=== PATIENT | female | born 2000 ===

== ENCOUNTER 2020-01-12 09:47 | Emergency (ER) | payer OTHER, SELFPAY ==
[2020-01-12 09:59] VITALS: BP 118/74; BP 150/100; PULSE 100; PULSE 90; RESP 18; TEMP 36.8; O2SAT 98; O2SAT 99; BMI 31.7
--- NOTE | 2020-01-12 10:40 | XR_ITS ---
EXAMINATION: XR FOOT, RIGHT CLINICAL INFORMATION: Cellulitis. Pain. COMPARISON: None TECHNIQUE: AP, lateral, and oblique views of the right foot. FINDINGS: The bones and soft tissues are normal. No fracture. Alignment is anatomic. Joint spaces are maintained. No evidence for osteomyelitis. No radiopaque foreign body. XR/XR foot RT min 3V IMPRESSION: Normal right foot.
--- NOTE | 2020-01-12 10:40 | CT_ITS ---
EXAM: Noncontrast CT scan of the head and cervical spine. INDICATION: Fall with head injury and pain. COMPARISON: Head CT 07/26/2019 TECHNIQUE: Axial slices were obtained from skull base to vertex and displayed. This was followed by helical, multislice, multidetector axial images from the occiput to the upper thorax. Coronal and sagittal reformats of the cervical spine in addition to coronal reformats of the head were obtained at the technologist workstation. DLP: 1155 mGy-cm FINDINGS: HEAD: There is no evidence of acute intracranial hemorrhage or territorial infarction. No abnormal mass effect or midline shift is appreciated. Myles-white differentiation is well preserved. No extra-axial fluid collections. The ventricular system and cortical sulci are normal. The osseous structures and soft tissues are normal. The visualized paranasal sinuses and mastoid air cells are well aerated. SPINE: There is straightening of the normal cervical lordosis. Alignment is otherwise unremarkable. Normal C1/C2 articulation. Vertebral body heights and disc spaces are well-maintained. No significant degenerative changes of the cervical spine. No prevertebral soft tissue swelling. Visualized lung apices are well aerated. CT/CT cervical spine wo con IMPRESSION: 1. No acute intracranial pathology. 2. No fractures or dislocations of the cervical spine. This CT examination was performed using dose optimization techniques as appropriate, variously including the following: *Automated exposure control *Adjustment of mA and/or kV according to patient size (this includes techniques or standardized protocols for targeted exams where dose is matched to indication/reason for exam; i.e. extremities or head) *Use of iterative reconstruction technique
--- NOTE | 2020-01-12 10:41 | ED_ITS ---
HPI - General Adult General Chief complaint: General Medical Stated complaint: FALL HIT HEAD Time Seen by Provider: 01/12/20 10:30 Source: patient Mode of arrival: ambulatory Limitations: no limitations History of Present Illness HPI narrative: 19yoF presenting to the ED c c/o headache after she sustained a fall at home mary she slipped and fell while running to prevent her son from touching a briceño on the ot stove c head injury no loc/blood thinner's. Denies any other injuries pertaining to this fall. Reports she was seen here in October for right great toe ingrown toenail was placed on antibiotics after e I&D day and reports that the toe continues to be erythematous and painful. Reports she has not followed up. Denies any fevers or any other symptom complaints or concerns. Related Data Previous Rx's Medication Instructions Recorded acetaminophen [Tylenol Extra 1,000 mg PO QID PRN #10 tab 01/12/20 Strength] cephalexin [Keflex] 500 mg PO Q6H 10 Days #40 cap 01/12/20 doxycycline monohydrate 100 mg PO BID 10 Days #20 cap 01/12/20 Allergies Allergy/AdvReac Type Severity Reaction Status Date / Time No Known Allergies Allergy Unverified 10/24/19 17:06 [No Known Allergies*] Review of Systems Review of Systems: Constitutional : No changes in activity, No lethargy, No recent prior head injury, No agitation, No increased fussiness ENT/Mouth : No Ear Pain, No Nasal discharge/drainage Eyes: No Eye Pain, No Swelling, No Redness, No Foreign Body, No Vision Changes Cardiovascular : No Chest Pain, No SOB Respiratory : No Cough Gastrointestinal : No Nausea, No Vomiting, No abdominal Pain Genitourinary : No Dysuria, No Urinary Frequency, No Urinary Incontinence, No Urgency, No Flank Pain Musculoskeletal : + joint pain/swelling/redness, No neck stiffness, No back pain/injury Skin : No lacerations Neuro : No unsteady gait, No Paresthesias, No Loss of Consciousness, No altered mental status, +head injury c Headache Yes all other systems are reviewed and are negative [facility] Past Medical History Attestation statement: The following information was validated with the patient. Medical History No known health problems Social History Social History Advance Directives: No Advance Directives Information Provided: No Physical Exam Vital Signs: Vital Signs: Last Vital Signs Temp 98.3 F 01/12/20 09:59 Pulse 90 01/12/20 09:59 Resp 18 01/12/20 09:59 BP 118/74 01/12/20 09:59 Pulse Ox 99 01/12/20 09:59 Body Mass Index 31.7 Vital signs have been reviewed as normal and appeared to be correct. Blood pressure normal. Heart rate normal. Respiration rate normal. Temperature normal. Oxygen saturation normal. Appearance: Alert. Oriented X3. No acute distress. Head: Normal external exam. Normocephalic. to left posterior occiptal aspect th ere is ecchymosis and sts noted. No lacerations/abrasions noted. Able to rotate head bilaterally. Eyes: PERRLA. EOMI. No nystagmus noted. Conjunctiva and sclera normal. Eyelids normal. Corneal reflex normal. ENT: EAC normal. TM's Normal. Hearing normal. Pharynx normal. Uvula midline. tongue midline. Moist mucous membranes. No trismus noted. No drooling noted. No muffled voice noted. Neck: Normal inspection. Neck supple. FROM. No adenopathy. No meningeal signs. CVS: Normal heart rate and rhythm. Heart sound normal. No murmurs noted. Pulses normal throughout. Respiratory: No respiratory distress. Painless inspiration. Breath sounds normal. No wheezes/rales/rhonchi noted. Chest nontender. No accessory muscle usage noted or decreased air movement noted. Back: Full range of motion noted. Skin: Skin warm and dry. Normal skin color. Normal skin turgor. No rashes/lesions/lacerations noted. Extremities: right great toe c moderate erythema and bloody scabbed noted when scabbed cleaned and removed only bloody drainage no Purulent drainage noted. No streaking / induration /fluctuance or foreign bodies noted. all other Extremities exhibit normal range of motion and Extremities nontender. Neuro: Oriented X 3. No motor deficit. No sensory deficit. Reflexes normal. Moving all extremities. No focal motor deficits. Cranial nerves II-XI intact bilaterally. Facial strength normal. Normal cognition. Speech normal. Gait normal. Strength 5/5 throughout. Muscle tone normal throughout. Able to shrug shoulders bilaterally and keep up against resistance. Course Course Course Narrative: 19-year-old female presenting to the ED with complaints of headache after she sustained a head injury due to a mechanical fall at home no loss of conscious is not on any blood thinners. Second complaint of right ingrown toenail which was taking care of here in October although with pe rsistent pain and swelling along with redness. Reports she has not followed up. - On exam patient has mild soft tissue swelling to the occipital posterior scalp with ecchymosis noted. No abrasions/lacerations noted. Patient is neuro intact no neuro deficits noted. Patient has a normal steady gait. Will obtain a CT scan of brain and cervical spine and x-ray of her right foot and then DC home with symptomatic treatment and antibiotics and referral to chassis driver. Patient understands agrees the plan. Medical Decision Making Medical Records Medical records reviewed: Yes I reviewed the patient's medical records. Imaging Data CT scan of brain and cervical spine: Attestation: I personally reviewed and interpreted this imaging study as follows: Radiologist's impression: IMPRESSION: 1. No acute intracranial pathology. 2. No fractures or dislocations of the cervical spine. right foot: Attestation: I personally reviewed and interpreted this imaging study as follows: Radiologist's impression: IMPRESSION: Normal right foot. Discharge Plan Discharge Clinical Impression: Cellulitis of great toe, right Head injury Qualifiers: Encounter type: initial encounter Qualified Code(s): S09.90XA - Unspecified injury of head, initial encounter Concussion Qualifiers: Encounter type: initial encounter Loss of consciousness presence/duration: without LOC Qualified Code(s): S06.0X0A - Concussion without loss of consciousness, initial encounter Scalp bruising Qualifiers: Encounter type: initial encounter Qualified Code(s): S00.03XA - Contusion of scalp, initial encounter Fall Qualifiers: Encounter type: initial encounter Qualified Code(s): W19.XXXA - Unspecified fall, initial encounter Patient Disposition: Home, Self-Care Instructions: Cellulitis (ED), Concussion (ED) Prescriptions: New doxycycline monohydrate 100 mg capsule 100 mg PO BID 10 Days Qty: 20 RF: 0 cephalexin [Keflex] 500 mg capsule 500 mg PO Q6H 10 Days Qty: 40 RF: 0 acetaminophen [Tylenol Extra Strength] 500 mg tablet 1,000 mg PO QID PRN (Reason: pain) Qty: 10 RF: 0 Referrals: Sebastian Servin [Physician] - 2 days Stand Alone Forms: Work/School Release Print Language: Bruneian
== END 2020-01-12 13:03 | disposition home or self-care (01) ==
PROVIDERS: Emergency Provider Internal Medicine
DX: S06.0X0A Concussion without loss of consciousness, initial encounter (principal); S00.03XA Contusion of scalp, initial encounter; L03.031 Cellulitis of right toe; M54.2 Cervicalgia; M79.671 Pain in right foot; W01.0XXA Fall on same level from slipping, tripping and stumbling without subsequent striking against object, initial encounter; Y93.02 Activity, running; Y92.000 Kitchen of unspecified non-institutional (private) residence as the place of occurrence of the external cause; Z79.899 Other long term (current) drug therapy
CPT/HCPCS: 70450; 72125; 73630; 99284

== ENCOUNTER 2021-06-30 12:48 | Emergency (ER) | payer OTHER, SELFPAY ==
[2021-06-30 13:29] VITALS: BP 126/81; PULSE 82; RESP 18; TEMP 36.6; O2SAT 99; BMI 34.9
--- NOTE | 2021-06-30 16:06 | ED.GENADULT ---
HPI - General Adult General Chief complaint: Ear Problems Stated complaint: ear pain Time Seen by Provider: 06/30/21 15:40 Source: patient Mode of arrival: ambulatory Limitations: no limitations History of Present Illness HPI narrative: 20-year-old female presents to the ED for right ear pain for the past 3 days. Patient denies any ear discharge. Patient states pain with decreased hearing. Patient denies any recent swimming. Related Data Previous Rx's Medication Instructions Recorded acetaminophen 500 mg tablet 1,000 mg PO QID PRN #10 tab 01/12/20 (Tylenol Extra Strength) cephalexin 500 mg capsule (Keflex) 500 mg PO Q6H 10 Days #40 cap 01/12/20 doxycycline monohydrate 100 mg 100 mg PO BID 10 Days #20 cap 01/12/20 capsule naproxen 500 mg tablet 500 mg PO BID PRN 10 Days #20 tab 06/30/21 [id number] 3.3 4 drp OTIC (EAR) RIGHT TID 10 Days 06/30/21 mg-3 mg-10 mg-0.5 mg/mL ear #100 ml drops,susp (Cortisporin-TC) Allergies Allergy/AdvReac Type Severity Reaction Status Date / Time No Known Allergies Allergy Verified 06/30/21 13:29 [No Known Allergies*] Review of Systems Review of Systems: Right ear pain Yes all other systems are reviewed and are negative [facility] Past Medical History Medical History No known health problems Social History Social History Advance Directives: No Advance Directives Information Provided: No Physical Exam ED Vital Signs: Vital Signs - 24 hr 06/30/21 13:29 Temperature 97.8 F Pulse Rate 82 Respiratory Rate 18 Blood Pressure 126/81 Pulse Oximetry 99 BMI result Body Mass Index 34.9 Const General: cooperative, healthy appearing, comfortable, no acute distress, well developed, alert, awake and Physically active Orientation/consciousness: oriented to time and patient oriented x3 HENMT Head: Yes normal to inspection, Yes No palpable skull fracture present, Yes normocephalic, Yes atraumatic and No abrasion Ears: hearing grossly normal bilaterally, external ears normal, TM's normal bilaterally, TM normal on the right, TM normal on the left, mastoids normal, no periauricular adenopathy and Abnormal EAC present (Right ear) erythema and edema Eyes General: appearance normal, both eyes and all related structures Neck Neck: Yes normal visual inspection, Yes full ROM, Yes no lymphadenopathy, Yes no meningeal signs, Yes trachea midline, Yes supple, No anterior neck swelling and No tender Chest Chest palpation & inspection: normal inspection of the chest and normal palpation of entire chest wall Resp Effort & Inspection: normal respiratory effort and able to speak in complete sentences Auscultation: clear to auscultation bilaterally Cardio Jugular venous distension: no JVD Heart sounds: S1 normal heart sound present and S2 normal heart sound present GI Inspection: Yes normal to inspection and No abdominal wall ecchymosis Palpation (GI): Soft to palpation, not firm, nontender and no guarding General: No CVA tenderness and Yes no CVA tenderness Back/Spine/Pelvis Back: no CVA tenderness, No CVA tenderness and No back tenderness Skin General skin exam: no rashes or lesions noted and elasticity normal Neuro General: oriented to time, patient oriented x3, gait normal, no meningeal signs and CN's II-XI intact bilaterally Cranial nerves: Yes CN's II-XII intact bilaterally Extrem General: Yes normal to inspection and Yes full ROM Psych Appearance: grossly normal, well kempt and not disheveled Course Course Course Narrative: Right ear infection Reevaluation(s) Reevaluation #1: Physical exam indicate otitis externa. Patient will be discharged with ear drops antibiotic Time: 16:09 Medical Decision Making [facility] Narrative Medical decision making narrative: Otitis externa Discharge Plan Discharge Clinical Impression: Otitis externa Patient Disposition: Home, Self-Care Instructions: Otitis Externa (DC) Additional Instructions: History physical exam indicate infection. He will need ear drops antibiotic. Please follow-up with primary care provider and ENT specialist for days no improvement. Return to the ED immediately for worsening ear pain, blood/drainage from the ear, headache, dizziness, swelling of redness in front or behind ear or any other concerning symptoms. Prescriptions: New Cortisporin-TC 3.3-3-10-0.5 mg/mL drops,suspension 4 drp otic (ear) right TID 10 Days Qty: 100 0RF naproxen 500 mg tablet 500 mg PO BID PRN (Reason: pain) 10 Days Qty: 20 0RF No Action doxycycline monohydrate 100 mg capsule 100 mg PO BID 10 Days Qty: 20 0RF cephalexin [Keflex] 500 mg capsule 500 mg PO Q6H 10 Days Qty: 40 0RF acetaminophen [Tylenol Extra Strength] 500 mg tablet 1,000 mg PO QID PRN (Reason: pain) Qty: 10 0RF Referrals: Bryan Mendez [Physician] - (Right otitis externa) Stand Alone Forms: Work/School Release Interventions: ED Discharge Assessment Last Done: 06/30/21 16:41 Discharge Date/Time: 06/30/21 16:42 Print Language: German
== END 2021-06-30 16:42 | disposition home or self-care (01) ==
PROVIDERS: Emergency Provider Student in an Organized Health Care Education/Training Program
DX: H60.91 Unspecified otitis externa, right ear (principal)
CPT/HCPCS: 99283

== ENCOUNTER 2022-10-10 10:08 | Emergency (ER) | payer OTHER, SELFPAY ==
--- NOTE | 2022-10-10 | ECG_ITS ---
Test Reason : tachycardia Blood Pressure : / mmHG Vent. Rate : 121 BPM Atrial Rate : 121 BPM P-R Int : 126 ms QRS Dur : 086 ms QT Int : 308 ms P-R-T Axes : 030 007 042 degrees QTc Int : 437 ms Sinus tachycardia Possible Left atrial enlargement Brugada pattern, type 1 Abnormal ECG When compared with ECG of 11-MAR-2019 22:47, Vent. rate has increased BY 53 BPM T wave amplitude has decreased in Anterolateral leads Referred By: Generic ED Physician Electronically Signed By:BETO MAS
--- NOTE | ~2022-10-10 | CT_ITS ---
EXAMINATION: CT SOFT TISSUE NECK WITH CONTRAST CLINICAL INFORMATION: Sore throat. Deviated uvula. Rule out peritonsillar abscess. COMPARISON: None available. TECHNIQUE: Following the intravenous administration of 60 mL of Omnipaque 350 intravenous contrast, helical imaging was performed in the axial plane with generation of coronal and sagittal reformatted images. This CT examination was performed using dose optimization techniques as appropriate, variously including the following: *Automated exposure control *Adjustment of mA and/or kV according to patient size (this includes techniques or standardized protocols for targeted exams where dose is matched to indication/reason for exam; i.e. extremities or head) *Use of iterative reconstruction technique DLP: 611 mGy-cm FINDINGS: There is severe soft tissue swelling of the oral and nasopharynx. No definite abscess is seen. The epiglottis is normal. The larynx is normal. There is diffuse shotty cervical lymphadenopathy. Visualized intracranial structures are normal. The orbits are normal. Visualized paranasal sinuses, mastoid air cells and middle ears are clear. The salivary glands are normal. The thyroid gland is normal. Vascular structures are normal. The visualized superior mediastinum is normal. Visualized lung apices are clear. CT/CT soft tissue neck w IV con IMPRESSION: Diffuse soft tissue swelling of the oropharynx and nasopharynx. No abscess seen. Shotty cervical lymphadenopathy.
[2022-10-10 10:10] VITALS: BP 132/71; PULSE 130; RESP 20; TEMP 39.4; O2SAT 98; BMI 34.7
[2022-10-10 10:36] LABS: MANUAL DIFF FLAG NO
[2022-10-10 10:37] LABS: Basophils Percent Auto 0.3 % (0-2); Eosinophils Percent Auto 0.1 % (0-4); Hematocrit 40.1 % (37.0-47.0); Hemoglobin 13.2 g/dl (12.0-16.0); Imm Gran Abs Auto 0.04 X10*3/uL (0.00-0.03); Imm Gran Pct Auto 0.3 % (0.0-0.4); Lymphocytes Absolute Auto 1.4 X10*3/uL (1.2-4.9); Lymphocytes Percent Auto 12.5 % (20-40); Mean Corpuscular HGB Conc 32.9 g/dl (31.0-35.0); Mean Corpuscular Hemoglobin 27.6 pg (27.0-33.0); Mean Corpuscular Volume 83.9 fL (80.0-98.0); Mean Platelet Volume 9.1 fL (9.4-12.3); Monocytes Absolute Auto 1.2 X10*3/uL (0.1-1.2); Monocytes Percent Auto 10.5 % (2-11); Neutrophils Absolute Auto 8.7 x10*3/uL (2.0-8.3); Neutrophils Percent Auto 76.3 % (45-73); Platelet Count 234 X10*3/uL (160-400); Red Blood Count 4.78 X10*6/uL (4.20-5.50); Red Cell Distribution Width 13.4 % (11.0-16.0); White Blood Count 11.4 X10*3/uL (4.8-10.8)
[2022-10-10] MEDS: Acetaminophen 325 MG TABLET 975 MG PO (10:47)
[2022-10-10 11:09] LABS: Alanine Aminotransferase 26 U/L (0-31); Albumin Level 4.4 g/dL (3.5-5.0); Alkaline Phosphatase 73 U/L (39-117); Anion Gap 13 (12-20); Aspartate Amino Transferase 23 U/L (5-31); Bilirubin Total 0.7 mg/dL (0.0-1.0); Blood Urea Nitrogen 7 mg/dL (9-16); Calcium 9.2 mg/dL (8.4-10.2); Carbon Dioxide 23 mmol/L (22-29); Chloride 103 mmol/L (96-108); Creatinine Clr Calc Pharmacy 115.5; Estimated Glomerular Filt Rate > 60; Glucose Random 103 mg/dL (60-115); Potassium 3.9 mmol/L (3.3-5.1); Sodium 135 mmol/L (135-145); Total Protein 8.5 g/dL (6.5-8.0)
[2022-10-10 11:21] LABS: Influenza A PCR NEGATIVE (Negative); Influenza B PCR NEGATIVE (Negative); Resp Syncy Virus RNA Qual PCR NEGATIVE (Negative); SARS COV2 PCR INHOUSE NEGATIVE (Negative)
[2022-10-10 11:22] LABS: IDNOW Serial# 08D9AD1C; Strep A Nucleic Acid Negative (Negative)
[2022-10-10 11:40] LABS: Monotest Negative (Negative)
--- NOTE | 2022-10-10 11:44 | ED_ITS ---
HPI - URI/Sore Throat General Chief Complaint: Upper Respiratory Symptoms Stated Complaint: sore throat Time Seen by Provider: 10/10/22 10:43 Source: patient Mode of arrival: ambulatory Limitations: no limitations History of Present Illness HPI Narrative: 21 yo female with no significant past medical history presents to the ED today with congestion, sore throat, anorexia, headache ( diffuse, no vision changes, trauma or dizziness), and fever x3 days. Reports one episode of nonbloody vomiting yesterday. Admits difficulty swallowing her saliva due to sore thorat. States both of her children are sick at home. Vaccinations UTD. Denies ear pain/ discharge, cough, shortness of breath, chest pain, abdominal pain, neck pain. Related Data Previous Rx's Medication Instructions Recorded acetaminophen 500 mg tablet 1,000 mg PO QID PRN pain #10 tabs 01/12/20 (Tylenol Extra Strength) cephalexin 500 mg capsule (Keflex) 500 mg PO Q6H 10 days #40 caps 01/12/20 doxycycline monohydrate 100 mg 100 mg PO BID 10 days #20 caps 01/12/20 capsule naproxen 500 mg tablet 500 mg PO BID PRN pain 10 days #20 06/30/21 tabs [id number] 3.3 4 drp otic (ear) right TID 10 days 06/30/21 mg-3 mg-10 mg-0.5 mg/mL ear #100 mL drops,susp (Cortisporin-TC) Magic Mouthwash 5 ml PO TID #240 mL 10/10/22 Diphen/Lido/Antacid 1:1:1 240 mL suspension amoxicillin 875 mg-potassium 1 tab PO BID 10 days #20 tabs 10/10/22 clavulanate 125 mg tablet prednisone 20 mg tablet 40 mg PO DAILY 5 days #10 tabs 10/10/22 Allergies Allergy/AdvReac Type Severity Reaction Status Date / Time No Known Allergies Allergy Verified 06/30/21 13:29 [No Known Allergies*] Review of Systems Review of Systems: Constitutional : No Weight loss, + Fever, No Chills, + Fatigue, + Malaise ENT/Mouth : + sore throat, No Rhinorrhea Eyes: No Eye Pain, No Swelling, No Redness Cardiovascular : No Chest Pain, No SOB, No Dyspnea on Exertion, No Orthopnea, No Edema, No Palpitations Respiratory : No Cough, No Sputum, No Wheezing Gastrointestinal : No Nausea, + Vomiting, No Diarrhea, No Constipation, No abdominal Pain, No Hematochezia, No Melena Genitourinary : No Dysuria, No Urinary Frequency, No Hematuria, Musculoskeletal : No joint pain, No Myalgias, No Joint Swelling Skin : No Skin Lesions, No rash Neuro : No Weakness, No Numbness, No Dizziness, + Headache All other systems reviewed and are negative Yes all other systems are reviewed and are negative [facility] Past Medical History Attestation statement: The following information was validated with the patient. Source: old records reviewed and nursing notes reviewed Medical History No known health problems Social History Social History Advance Directives: No Advance Directives Information Provided: No Physical Exam Vital Signs: Vital Signs: Last Vital Signs Temp 102.9 F H 10/10/22 10:10 Pulse 130 H 10/10/22 10:10 Resp 20 10/10/22 10:10 BP 132/71 10/10/22 10:10 Pulse Ox 98 10/10/22 10:10 O2 Del Method Room Air 10/10/22 10:10 BMI result Body Mass Index 34.7 Appearance: Alert.? Oriented X3.? No acute distress.? Head: Normocephalic, atraumatic, no step-offs or deformities Eyes: Pupils equal, round and reactive to light.? ENT: Erythematous pharynx with light exudates noted to the posterior pharynx on L. Enlarged, erythematous tonsils bilaterally touching. Uvula deviated to the left. Speaking in full sentences. Controlling secretions. Neck: Normal inspection.? Neck supple.? CVS: Normal heart rate and rhythm.? Pulses normal.? Respiratory: No respiratory distress.? Breath sounds normal.? Abdomen: Soft and nontender.? Skin: Skin warm and dry.? Normal skin color.? Normal skin turgor.? Extremities: No lower extremity edema.? No calf ttp. 5/5 strength to bilateral upper and lower extremities Back: No midline tenderness, no C-spine tenderness, full range of motion, no CVA tenderness bilaterally Neuro: Oriented X 3.? No motor deficit.? No sensory deficit. CN 2-12 intact Course Reevaluation(s) Reevaluation #1: CBC with mild leukocytosis to 11.4, no left shift, otherwise WNL. CMP without any acute electrolyte abnormalities requiring intervention. Serology negative for strep & COVID. Patient with elevated white count, fever of 102.9F, and tachycardia > likely secondary to viral syndrome i do not suspect sepsis. CT soft tissue neck pending. Patient currently complaining of headache > Toradol ordered for pain control. Exam is nonfocal, low suspicion for intracranial pathology, ICH, stroke, posterior stroke at this time. Imaging of the head not necessary at this time. NIHSS 0 ( no signs of meningitis/encephalitis) Time: 12:00 Reevaluation #2: CT soft tissue neck with diffuse soft tissue swelling of the oropharynx and nasopharynx, no abscess seen. Short cervical lymphadenopathy. Patient feeling much better after medication. Will discharge home with antibiotics, prednisone, magic mouthwash. Will have her follow up with ears, Nose, Throat. Educated pat ient on diagnosis and treatment plan, answered all question, patient verbalizes understanding. At this time patient will be discharged home, advised to return with new or worsening symptoms. Educated on worrisome signs and symptoms and when to return. At this time I feel comfortable discharge home. Time: 14:31 Medications Administered Discontinued Medications Generic Name Dose Route Start Last Admin Trade Name Freq PRN Reason Stop Dose Admin Acetaminophen 975 mg 10/10/22 10:43 10/10/22 10:47 Acetaminophen 325 Mg Tablet PO 10/10/22 10:44 975 mg ONCE ONE Administration Dexamethasone Sodium Phosphate 10 mg 10/10/22 12:21 10/10/22 12:39 Dexamethasone Sod Phosphate 10 Mg/Ml Vial IVPUSH 10/10/22 12:22 10 mg ONCE ONE Administration Iohexol 60 ml 10/10/22 12:51 10/10/22 12:51 Iohexol 350 Mg/Ml 75 Ml Infus..Btl IV 10/10/22 12:52 60 ml ONCE ONE Administration Ketorolac Tromethamine 30 mg 10/10/22 11:50 10/10/22 12:16 Ketorolac Tromethamine 15 Mg/Ml Vial IM 10/10/22 11:51 30 mg ONCE ONE Administration Medical Decision Making Medical Decision Making [facility] Narrative: 1155 21 yo female presenting with sore throat, congestion, HURT[place]O, and fever x3 days PE- Erythematous pharynx with light exudates noted to the posterior pharynx on L. Enlarged, erythematous tonsils bilaterally touching. Uvula deviated to the left. Speaking in full sentences. Controlling secretions. Lungs CTA bilaterally. Clinical suspicion for viral syndrome vs strep throat vs mono. Concern for [employer] vs retropharyngeal abscess > will obtain CT soft tissue neck to rule out. Low suspicion for epiglottitis or compromised airway. No signs of respiratory disress at this time. H[place]O likely viral unlikely encephalitis, or meningitis. No signs of ICH, stroke or posterior stroke. Plan: serology, basic labs, CT neck Differential Diagnosis Differential Diagnoses: The differential diagnosis associated with the presentation includes Clinical suspicion for viral syndrome vs strep throat vs mono. Concern for [employer] vs retropharyngeal abscess > will obtain CT soft tissue neck to rule out. Low suspicion for epiglottitis or compromised airway. No signs of respiratory disress at this time. [place] likely viral unlikely encephalitis, or meningitis. No signs of ICH, stroke or posterior stroke. Admission/Observation Consideration of admission/observation: Escalation of care including admission/observation considered possible Lab Data [facility] Lab Attestation statement: I reviewed the patient's lab results. As above 10/10/22 10:26 10/10/22 10:26 Labs: Lab Results 10/10/22 10/10/22 10/10/22 Range/Units 10:26 10:26 10:26 WBC 11.4 H (4.8-10.8) X10*3/uL RBC 4.78 (4.20-5.50) X10*6/uL Hgb 13.2 (12.0-16.0) g/dl Hct 40.1 (37.0-47.0) % MCV 83.9 (80.0-98.0) fL MCH 27.6 (27.0-33.0) pg MCHC 32.9 (31.0-35.0) g/dl RDW 13.4 (11.0-16.0) % Plt Count 234 (160-400) X10*3/uL MPV 9.1 L (9.4-12.3) fL Immature Gran % (Auto) 0.3 (0.0-0.4) % Neut % (Auto) 76.3 H (45-73) % Lymph % (Auto) 12.5 L (20-40) % Barber % (Auto) 10.5 (2-11) % Eos % (Auto) 0.1 (0-4) % Baso % (Auto) 0.3 (0-2) % Lymph # (Auto) 1.4 (1.2-4.9) X10*3/uL Barber # (Auto) 1.2 (0.1-1.2) X10*3/uL Eos # (Auto) 0.0 (0.0-0.4) X10*3/uL Baso # (Auto) 0.0 (0.0-0.2) X10*3/uL Abs Immat Gran (auto) 0.04 H (0.00-0.03) X10*3/uL Absolute Neuts (auto) 8.7 H (2.0-8.3) x10*3/uL Absolute Nucleated RBC 0.000 (0.0-0.012) X10*3/uL Nucleated RBC % (auto) 0.0 (0.0-0.2) /100WBC Sodium 135 (135-145) mmol/L Potassium 3.9 (3.3-5.1) mmol/L Chloride 103 (96-108) mmol/L Carbon Dioxide 23 (22-29) mmol/L Anion Gap 13 (12-20) BUN 7 L (9-16) mg/dL Creatinine 0.83 (0.5-1.4) mg/dL Estim Creat Clear Calc 115.5 Estimated GFR > 60 Random Glucose 103 (60-115) mg/dL Lactic Acid (0.5-2.0) mmol/L Calcium 9.2 (8.4-10.2) mg/dL Total Bilirubin 0.7 (0.0-1.0) mg/dL AST 23 (5-31) U/L ALT 26 (0-31) U/L Alkaline Phosphatase 73 (39-117) U/L Total Protein 8.5 H (6.5-8.0) g/dL Albumin 4.4 (3.5-5.0) g/dL Monoscreen (Negative) Influenza Type A (PCR) NEGATIVE (Negative) Influenza Type B (PCR) NEGATIVE (Negative) RSV RNA Qual (PCR) NEGATIVE (Negative) SARS-CoV-2 RNA (RT-PCR) NEGATIVE (Negative) S. pyogenes GrpA REHAN (Negative) 10/10/22 10/10/22 10/10/22 Range/Units 11:08 11:08 12:38 WBC (4.8-10.8) X10*3/uL RBC (4.20-5.50) X10*6/uL Hgb (12.0-16.0) g/dl Hct (37.0-47.0) % MCV (80.0-98.0) fL MCH (27.0-33.0) pg MCHC (31.0-35.0) g/dl RDW (11.0-16.0) % Plt Count (160-400) X10*3/uL MPV (9.4-12.3) fL Immature Gran % (Auto) (0.0-0.4) % Neut % (Auto) (45-73) % Lymph % (Auto) (20-40) % Barber % (Auto) (2-11) % Eos % (Auto) (0-4) % Baso % (Auto) (0-2) % Lymph # (Auto) (1.2-4.9) X10*3/uL Barber # (Auto) (0.1-1.2) X10*3/uL Eos # (Auto) (0.0-0.4) X10*3/uL Baso # (Auto) (0.0-0.2) X10*3/uL Abs Immat Gran (auto) (0.00-0.03) X10*3/uL Absolute Neuts (auto) (2.0-8.3) x10*3/uL Absolute Nucleated RBC (0.0-0.012) X10*3/uL Nucleated RBC % (auto) (0.0-0.2) /100WBC Sodium (135-145) mmol/L Potassium (3.3-5.1) mmol/L Chloride (96-108) mmol/L Carbon Dioxide (22-29) mmol/L Anion Gap (12-20) BUN (9-16) mg/dL Creatinine (0.5-1.4) mg/dL Estim Creat Clear Calc Estimated GFR Random Glucose (60-115) mg/dL Lactic Acid 0.5 (0.5-2.0) mmol/L Calcium (8.4-10.2) mg/dL Total Bilirubin (0.0-1.0) mg/dL AST (5-31) U/L ALT (0-31) U/L Alkaline Phosphatase (39-117) U/L Total Protein (6.5-8.0) g/dL Albumin (3.5-5.0) g/dL Monoscreen Negative (Negative) Influenza Type A (PCR) (Negative) Influenza Type B (PCR) (Negative) RSV RNA Qual (PCR) (Negative) SARS-CoV-2 RNA (RT-PCR) (Negative) S. pyogenes GrpA REHAN Negative (Negative) Independent Interpretation I performed an independent interpretation of an: CT Scan Radiology Impression Discussion of test interpretation with radiology: I have reviewed the radiologist's reading. Core Measures AMI core measures followed: Yes Measure exclusions: not indicated Critical Care Time Critical Care Time Critical Care Time: No Discharge Plan Discharge Clinical Impression: Pharyngitis, Fever Patient Disposition: Home, Self-Care Instructions: Pharyngitis (ED) Additional Instructions: Take your medications as prescribed. If you were prescribed antibiotics today, it is important that you take your medication to their entirety, do not skip any doses, do not finish them early. Follow-up with your primary care provider this week. Return to the emergency department with new or worsening symptoms. In case of emergency call 911 you can take ibuprofen every 6 hours, Tylenol every 4 as needed for fever, pain or discomfort. Prescriptions: New prednisone 20 mg tablet 40 mg PO DAILY 5 Days Qty: 10 0RF amoxicillin-pot clavulanate 875-125 mg tablet 1 tab PO BID 10 Days Qty: 20 0RF Magic Mouthwash Diphen/Lido/Antacid 1:1:1 240 mL suspension 5 ml PO TID Qty: 240 0RF Rx Instructions: Lidocaine Viscous 2 % 80mL; diphenhydramine 12.5 mg/5 mL 80mL; aluminum-mag hydrox-simeth [id number]/5mL 80mL Swish and spit, do not swallow No Action doxycycline monohydrate 100 mg capsule 100 mg PO BID 10 Days Qty: 20 0RF cephalexin [Keflex] 500 mg capsule 500 mg PO Q6H 10 Days Qty: 40 0RF acetaminophen [Tylenol Extra Strength] 500 mg tablet 1,000 mg PO QID PRN (Reason: pain) Qty: 10 0RF Cortisporin-TC 3.3-3-10-0.5 mg/mL drops,suspension 4 drp otic (ear) right TID 10 Days Qty: 100 0RF naproxen 500 mg tablet 500 mg PO BID PRN (Reason: pain) 10 Days Qty: 20 0RF Referrals: Bryan Mendez [Physician] - 2 days Physician,Unknown J [Primary Care Provider] - Stand Alone Forms: Work/School Release
[2022-10-10] MEDS: Ketorolac Tromethamine 15 MG/ML VIAL 30 MG IM (12:16)
[2022-10-10] MEDS: dexAMETHasone sod phosphate 10 MG/ML VIAL IVPUSH (12:39)
[2022-10-10] MEDS: iohexoL 350 MG/ML 75 ML INFUS..BTL 60 ML IV (12:51)
[2022-10-10 12:55] LABS: Lactic Acid 0.5 mmol/L (0.5-2.0)
== END 2022-10-10 15:35 | disposition home or self-care (01) ==
PROVIDERS: Physician Assistant; Emergency Provider Emergency Medicine
DX: J02.9 Acute pharyngitis, unspecified (principal); R50.9 Fever, unspecified; R00.0 Tachycardia, unspecified; Z20.822 Contact with and (suspected) exposure to COVID-19; Z20.828 Contact with and (suspected) exposure to other viral communicable diseases; Z79.899 Other long term (current) drug therapy
CPT/HCPCS: 0241U; 36415; 70491; 80053; 83605; 85025; 86308; 87040; 87651; 93005; 96372; 96374; 99284; J1100; J1885; Q9967

== ENCOUNTER 2022-10-11 23:49 | Emergency (ER) | payer OTHER, SELFPAY ==
[2022-10-11 23:58] VITALS: BP 150/100; PULSE 124; O2SAT 98
[2022-10-12 00:02] VITALS: BP 124/86; PULSE 111; RESP 18; TEMP 37.4; O2SAT 100; BMI 35.1
[2022-10-12] MEDS: Ibuprofen 600 MG TABLET PO (00:12)
[2022-10-12 06:03] VITALS: BP 111/79; PULSE 92; RESP 16; TEMP 36.3
--- NOTE | 2022-10-12 08:07 | ED.GENADULT ---
HPI - General Adult General Chief complaint: General Medical Stated complaint: THROAT PAIN/SWELLING,SEEN RECENTLY FOR SAME PER EM Time Seen by Provider: 10/12/22 08:07 Source: patient, RN notes reviewed and old records reviewed Mode of arrival: ambulatory History of Present Illness HPI narrative: 21-year-old female with past medical history of recent pharyngitis presenting to the ED complaining of continued/worsening sore throat with difficulty/inability to swallow and subjective fever. Patient was seen and treated in our ED on 10/10/2022 for similar symptoms, had labs and CT soft tissue neck which showed soft tissue swelling, no abscess, discharged on Augmentin/Prednisone and Magic mouthwash, however patient was noncompliant & never picked up medications from the pharmacy. Denies ear pain, cough, SOB Onset (ago): day(s) Related Data Previous Rx's Medication Instructions Recorded acetaminophen 500 mg tablet 1,000 mg PO QID PRN pain #10 tabs 01/12/20 (Tylenol Extra Strength) cephalexin 500 mg capsule (Keflex) 500 mg PO Q6H 10 days #40 caps 01/12/20 doxycycline monohydrate 100 mg 100 mg PO BID 10 days #20 caps 01/12/20 capsule naproxen 500 mg tablet 500 mg PO BID PRN pain 10 days #20 06/30/21 tabs [id number] 3.3 4 drp otic (ear) right TID 10 days 06/30/21 mg-3 mg-10 mg-0.5 mg/mL ear #100 mL drops,susp (Cortisporin-TC) Magic Mouthwash 5 ml PO TID #240 mL 10/10/22 Diphen/Lido/Antacid 1:1:1 240 mL suspension amoxicillin 875 mg-potassium 1 tab PO BID 10 days #20 tabs 10/10/22 clavulanate 125 mg tablet prednisone 20 mg tablet 40 mg PO DAILY 5 days #10 tabs 10/10/22 Allergies Allergy/AdvReac Type Severity Reaction Status Date / Time No Known Allergies Allergy Verified 06/30/21 13:29 [No Known Allergies*] Review of Systems Review of Systems: Constitutional: +subj Fever, No Chills ENT/Mouth: No Ear Pain, No Nasal Congestion, No Sinus Pain, No Hoarseness, + sore throat, No Rhinorrhea, No Swallowing Difficulty Cardiovascular: No Chest Pain, No SOB Respiratory: No Cough, No Sputum, No Wheezing Gastrointestinal: No Nausea, No Vomiting, No Diarrhea, No Constipation, No Abdominal pain Musculoskeletal: No joint pain, No Myalgias, No Joint Swelling Skin: No Skin Lesions, No rash Neuro: No Weakness Yes all other systems are reviewed and are negative Constitutional: Constitutional: Reports as per [facility] Past Medical History Attestation statement: The following information was validated with the patient. Source: old records reviewed Medical History No known health problems Social History Social History Alcohol intake: never Smoked in Last 30 Days: No Use of substances other than those prescribed or required for medical reasons: No Advance Directives: No Advance Directives Information Provided: No Patient : No Physical Exam ED Vital Signs: Vital Signs - 24 hr 10/12/22 00:02 10/12/22 06:03 10/12/22 08:32 Temperature 99.3 F 97.4 F 98.7 F Pulse Rate 111 H 92 85 Respiratory Rate 18 16 16 Blood Pressure 124/86 111/79 102/62 Pulse Oximetry 100 99 Oxygen Delivery Method Room Air Room Air Room Air BMI result Body Mass Index 35.1 Const General: cooperative and no acute distress Orientation/consciousness: patient oriented x3 Limitations: no limitations [facility] Other: + erythematous posterior pharynx with bilaterally swollen tonsils with exudate. 4+ tonsils. Uvula midline, talking in complete sentences, handling secretions. Head: Yes normal to inspection and Yes atraumatic Ears: hearing grossly normal bilaterally, external ears normal and mastoids normal General nose exam: Normal external nose present Face and sinus: Yes normal facial exam Mouth: Normal oral and palatal mucosa present and no drooling Throat: Yes uvula midline, No peritonsillar mass, No uvula laterally displaced and No uvular edema Eyes General: appearance normal, both eyes and all related structures EOM: EOMs intact bilaterally Neck Other: + submandibular lymphadenopathy bilaterally Neck: Yes normal visual inspection, Yes no meningeal signs, No anterior neck swelling and No torticollis Resp Effort & Inspection: normal respiratory effort, no respiratory distress and no stridor Auscultation: clear to auscultation bilaterally Cardio Rate: regular rate Heart sounds: S1 normal heart sound present and S2 normal heart sound present Skin Rashes: no rashes Wounds: no wounds Neuro General: patient oriented x3, tone normal and no meningeal signs Cranial nerves: Yes CN's II-XII intact bilaterally Gait exam (Neuro): Normal gait present Extrem General: Yes normal to inspection Course Course Course Narrative: -1042--no leukocytosis. Labs otherwise reassuring. Monospot negative > patient tolerated p.o. juliano vineet, Jell-O, and Kris crackers without difficulty, continues to handle secretions. Discussed importance of compliance with previously prescribed antibiotics and prednisone, recommended initiating prednisone starting tomorrow. Results discussed with patient including worrisome signs and symptoms and strict return precautions, and when to return to the emergency department. They verbalized understanding and feel safe for discharge at this time. Medications Administered Discontinued Medications Generic Name Dose Route Start Last Admin Trade Name Freq PRN Reason Stop Dose Admin Amoxicillin/Clavulanate Potassium 875 mg 10/12/22 08:21 10/12/22 08:47 Amoxicillin/Potassium Clav 875 Mg Tablet PO 10/12/22 08:22 875 mg ONCE ONE Administration Dexamethasone Sodium Phosphate 10 mg 10/12/22 08:21 10/12/22 08:49 Dexamethasone Sod Phosphate 10 Mg/Ml Vial IVPUSH 10/12/22 08:22 10 mg ONCE ONE Administration Ibuprofen 600 mg 10/12/22 00:06 10/12/22 00:12 Ibuprofen 600 Mg Tablet PO 10/12/22 00:07 600 mg ONCE ONE Administration Ketorolac Tromethamine 15 mg 10/12/22 08:21 10/12/22 08:49 Ketorolac Tromethamine 15 Mg/Ml Vial IVPUSH 10/12/22 08:22 15 mg ONCE ONE Administration Lidocaine HCl 15 ml 10/12/22 08:21 10/12/22 08:48 Lidocaine Hcl Viscous 2 % 15 Ml Solution MUCOUS MEM 10/12/22 08:22 15 ml ONCE ONE Administration Medical Decision Making Medical Decision Making [facility] Narrative: 21-year-old female with past medical history of recent pharyngitis presenting to the ED complaining of continued/worsening sore throat with difficulty/inability to swallow and subjective fever. On exam initially tachycardic likely from fever/discomfort, low-grade fever 99.3, talking in complete sentences, handling secretions, posterior or pharyngeal erythema with bilateral tonsillar swelling/erythema and exudates noted. Uvula is midline, handling secretions/no drooling or stridor. Concern for continued pharyngitis due to medication noncompliance vs mononucleosis. Lower suspicion for FILM CUTTER/retropharyngeal abscess. Viral studies negative 2 days ago. Plan: Labs, Monospot, p.o. Augmentin, viscous lidocaine, Decadron, Toradol, re-evaluate Please refer to course for remaining clinical decision making, interpretation of labs/imaging results, and discussions with consultants and/or family members. Differential Diagnosis Differential Diagnoses: The differential diagnosis associated with the presentation includes As above Admission/Observation Consideration of admission/observation: Escalation of care including admission/observation considered Lab Data MDM Lab Attestation statement: I reviewed the patient's lab results. 10/12/22 09:16 10/12/22 09:16 Labs: Lab Results 10/12/22 10/12/22 10/12/22 Range/Units 09:16 09:16 09:16 WBC 9.0 (4.8-10.8) X10*3/uL RBC 4.35 (4.20-5.50) X10*6/uL Hgb 12.1 (12.0-16.0) g/dl Hct 37.2 (37.0-47.0) % MCV 85.5 (80.0-98.0) fL MCH 27.8 (27.0-33.0) pg MCHC 32.5 (31.0-35.0) g/dl RDW 13.7 (11.0-16.0) % Plt Count 227 (160-400) X10*3/uL MPV 9.2 L (9.4-12.3) fL Immature Gran % (Auto) 0.3 (0.0-0.4) % Neut % (Auto) 70.1 (45-73) % Lymph % (Auto) 18.0 L (20-40) % Archer % (Auto) 11.0 (2-11) % Eos % (Auto) 0.3 (0-4) % Baso % (Auto) 0.3 (0-2) % Lymph # (Auto) 1.6 (1.2-4.9) X10*3/uL Archer # (Auto) 1.0 (0.1-1.2) X10*3/uL Eos # (Auto) 0.0 (0.0-0.4) X10*3/uL Baso # (Auto) 0.0 (0.0-0.2) X10*3/uL Abs Immat Gran (auto) 0.03 (0.00-0.03) X10*3/uL Absolute Neuts (auto) 6.3 (2.0-8.3) x10*3/uL Absolute Nucleated RBC 0.000 (0.0-0.012) X10*3/uL Nucleated RBC % (auto) 0.0 (0.0-0.2) /100WBC Sodium 140 (135-145) mmol/L Potassium 3.7 (3.3-5.1) mmol/L Chloride 107 (96-108) mmol/L Carbon Dioxide 26 (22-29) mmol/L Anion Gap 11 L (12-20) BUN 13 (9-16) mg/dL Creatinine 0.83 (0.5-1.4) mg/dL Estim Creat Clear Calc 116.4 Estimated GFR > 60 Random Glucose 91 (60-115) mg/dL Calcium 8.7 (8.4-10.2) mg/dL Monoscreen Negative (Negative) Radiology Impression Discussion of test interpretation with radiology: I have reviewed the radiologist's reading. External Record Review External record reviewed: Inpatient record, Office record, Outpatient record, Prior outpatient labs, Prior outpatient radiology, Primary care record and Outside ED record Tests considered The following testing was considered but not selected: As above Prescription Management I considered prescription management with: Pain Medication and Antibiotic Discharge Plan Discharge Clinical Impression: Pharyngitis Patient Disposition: Home, Self-Care Instructions: Pharyngitis (ED) Additional Instructions: YOU NEED TO TACTICAL DEBRIEFER HER MEDICATIONS FROM THE PHARMACY Take 2nd dose of antibiotic later today. Start prednisone tomorrow as you were given a dose of IV steroid in the emergency department Gargle with warm salt water Take Tylenol and Motrin for pain/swelling Is symptoms persist or worsen you develop inability or difficulty swallowing, or shortness of breath return to the ED immediately Prescriptions: No Action doxycycline monohydrate 100 mg capsule 100 mg PO BID 10 Days Qty: 20 0RF cephalexin [Keflex] 500 mg capsule 500 mg PO Q6H 10 Days Qty: 40 0RF acetaminophen [Tylenol Extra Strength] 500 mg tablet 1,000 mg PO QID PRN (Reason: pain) Qty: 10 0RF Cortisporin-TC 3.3-3-10-0.5 mg/mL drops,suspension 4 drp otic (ear) right TID 10 Days Qty: 100 0RF naproxen 500 mg tablet 500 mg PO BID PRN (Reason: pain) 10 Days Qty: 20 0RF prednisone 20 mg tablet 40 mg PO DAILY 5 Days Qty: 10 0RF amoxicillin-pot clavulanate 875-125 mg tablet 1 tab PO BID 10 Days Qty: 20 0RF Magic Mouthwash Diphen/Lido/Antacid 1:1:1 240 mL suspension 5 ml PO TID Qty: 240 0RF Rx Instructions: Lidocaine Viscous 2 % 80mL; diphenhydramine 12.5 mg/5 mL 80mL; aluminum-mag hydrox-simeth [id number]/5mL 80mL Swish and spit, do not swallow Referrals: Physician,Unknown J [Primary Care Provider] - Stand Alone Forms: Work/School Release Interventions: ED Discharge Assessment Last Done: 10/12/22 11:11 Discharge Date/Time: 10/12/22 11:12
--- OUTSIDE RECORDS SUMMARY | 2022-10-12 08:13 | XMS_ITS | Continuity of Care Document ---
Author Name Unknown Organization [facility] Address Unknown Care Team Providers Care Loss Prevention Leader Name Role Phone Rafita CHANG, Felicia Primary Care Physician [phone] Encounter [facility] [place] [place] [id number] Date(s): 09/18/20 - 11/08/20 [facility] Attending Physician: Not on Staff, Attending MD Referring Physician: Christy Ayoub CNM Allergies, Adverse Reactions, Alerts Substance Reaction Severity Status NKA Active Immunizations Given and Recorded Vaccine Date Status Refusal Reason Measles/Mumps/Rubella Virus Vaccine 09/17/20 Given tetanus/diphtheria/pertussis, acel(Tdap) 08/03/20 Given influenza virus vaccine, inactivated 01/27/20 Give n Medications Colace sodium 100 mg oral capsule 100 mg, 1, capsule, By Mouth, 2 times a day, PRN, # 20 capsule, Refills 1, Tot. Refills 1, Maintenance, Constipation, 09/24/20 8:57:00 EDT, Route to Pharmacy Electronically, [facility]/pharmacy #[id number], Partial fill upon patient request if the prescription is... Start Date: 09/24/20 Status: Ordered copper intrauterine device See Instructions, Bring to office for insertion., # 1 each, 0 Refills, Maintenance, 11/02/20 9:20:00 EDT, [facility], Partial fill upon patient request if the prescription is for a schedule II opioid drug., Bring to office for inserti... Start Date: 11/02/20 Status: Ordered Multivitamins with FA 0.8 mg oral tablet 1 tablet, By Mouth, Daily, # 60 tablet, 8 Refills, Maintenance, 02/11/20 11:34:00 EST, Tablet, [facility]/pharmacy #[id number], Partial fill upon patient request if the prescription is for a schedule II opioid drug., 1 tablet By Mouth Daily Start Date: 02/11/20 Status: Ordered Problem List Condition Effective Dates Status Health Status Inform ant Participant in Babyscripts Program(Confirmed) Active BMI 32.4, pre-(Confirmed) Active Rubella non-immune(Confirmed) Active Social History Social History Type Response Smoking Status Never (less than 100 in lifetime) entered on: 02/25/20 Sex
--- OUTSIDE RECORDS SUMMARY | 2022-10-12 08:13 | XMS_ITS | Continuity of Care Document ---
Author Name Unknown Organization [facility] janee Address [address] [place] [address] [address] [place] [address]- Care Team Providers Care Glass Cleaning Machine Tender Name Role Phone Megan Recio MD Primary Care Physician Encounter [facility] Date(s): 07/11/22 - 08/10/22 [facility] [address] [place], [place] [address] Attending Physician: AdmChelsy mejia Admitting Physician: AdmtrChelsy Referring Physician: Admtr, Ar8 Allergies, Adverse Reactions, Alerts No Known Allergies Immunizations Given and Recorded Vaccine Date Status Refusal Reason SARS-CoV-2 (COVID-19) mRNA BNT-162b2 vac 01/07/21 Recorded SARS-CoV-2 (COVID-19) mRNA BNT-162b2 vac 12/03/20 Recorded Measles/Mumps/Rubella Virus Vaccine 09/17/20 Given Measles/Mumps/Rubella Virus Vaccine 04/08/02 Recor ded Measles/Mumps/Rubella Virus Vaccine 06/03/00 Recor ded tetanus/diphtheria/pertussis, acel(Tdap) 08/03/20 Given tetanus/diphtheria/pertussis, acel(Tdap) 10/08/19 Recorded tetanus/diphtheria/pertussis, acel(Tdap) 05/02/18 Recorded tetanus/diphtheria/pertussis, acel(Tdap) 08/03/11 Recorded influenza virus vaccine, inactivated 01/27/20 Give n influenza virus vaccine, inactivated 12/05/18 Fabian rded influenza virus vaccine, inactivated 12/07/17 Fabian rded influenza virus vaccine, inactivated 03/01/16 Fabian rded influenza virus vaccine, inactivated 10/21/14 Fabian rded influenza virus vaccine, inactivated 01/09/14 Fabian rded influenza virus vaccine, inactivated 10/16/12 Fabian rded influenza virus vaccine, inactivated 11/26/10 Fabian rded Varicella Virus Vaccine 03/01/16 Recorded Varicella Virus Vaccine 08/03/11 Recorded Varicella Virus Vaccine 04/24/02 Recorded hepatitis B pediatric vaccine 03/01/16 Recorded hepatitis B pediatric vaccine 02/01/99 Recorded hepatitis B pediatric vaccine 98 Recorded hepatitis B pediatric vaccine 98 Recorded Meningococcal Conjugate Vaccine 10/21/14 Recorded Meningococcal Conjugate Vaccine 08/03/11 Recorded Human Papillomavirus Vaccine 03/07/14 Recorded Human Papillomavirus Vaccine 10/02/13 Recorded Human Papillomavirus Vaccine 08/17/12 Recorded Poliovirus Vaccine, Inactivated 08/03/11 Recorded Poliovirus Vaccine, Inactivated 04/05/99 Recorded Poliovirus Vaccine, Inactivated 03/04/99 Recorded Poliovirus Vaccine, Inactivated 02/01/99 Recorded diphtheria/tetanus/pertussis, acel(DTaP) 04/05/00 Recorded diphtheria/tetanus/pertussis, acel(DTaP) 03/09/99 Recorded diphtheria/tetanus/pertussis, acel(DTaP) 02/01/99 Recorded Medications Colace sodium 100 mg oral capsule 100 mg, 1, capsule, By Mouth, 2 times a day, PRN, # 20 capsule, Refills 1, Tot. Refills 1, Maintenance, Constipation, 09/24/20 8:57:00 EDT, Route to Pharmacy Electronically, [facility]/pharmacy #[id number], Partial fill upon patient request if the prescription is... Start Date: 09/24/20 Status: Ordered copper intrauterine device See Instructions, Bring to office for insertion., # 1 each, 0 Refills, Maintenance, 11/02/20 9:20:00 EDT, [facility], Partial fill upon patient request if the prescription is for a schedule II opioid drug., 164.4, cm, 09/19/20 12:24:0... Start Date: 11/02/20 Status: Ordered MiraLax oral powder for reconstitution = 17 Gm, By Mouth, Daily, dissolve in water before taking, # 255 Gm, 2 Refills, Maintenance, 02/23/22 9:51:00 EST, REC Powder, [facility]/pharmacy #[id number], Partial fill upon patient request if the prescription is for a schedule II opioid drug., 17 Gm By Mouth... Start Date: 02/23/22 Status: Ordered multivitamin Multiple Vitamins oral tablet 1 tablet, By Mouth, Daily, # 30 tablet, 11 Refills, Maintenance, 02/23/22 9:52:00 EST, Tablet, [facility]/pharmacy #[id number], Partial fill upon patient request if the prescription is for a schedule II opioid drug., 1 tablet By Mouth Daily, 164.4, cm, 02/23/22 9:... Start Date: 02/23/22 Status: Ordered Multivitamins with FA 0.8 mg oral tablet 1 tablet, By Mouth, Daily, # 60 tablet, 8 Refills, Maintenance, 02/11/20 11:34:00 EST, Tablet, [facility]pharmacy #[id number], Partial fill upon patient request if the prescription is for a schedule II opioid drug., 1 tablet By Mouth Daily Start Date: 02/11/20 Status: Ordered SUMAtriptan 25 mg oral tablet See Instructions, PRN for migraine headache, take 1 tablet By Mouth as needed for migraine headache. may repeat dose in 2 hours if needed, # 9 tablet, 2 Refills, Maintenance, 02/23/22 9:50:00 EST, Tablet, [facility]pharmacy #[id number], Partial fill upon patient... Start Date: 02/23/22 Status: Ordered Problem List Condition Confirmation Course Effective Dates Status Health St atus Informant Participant in Babyscripts Program Confirmed Active BMI 32.4, pre- Confirmed Active Obese class II Confirmed Active Social History Social History Type Response Smoking Status Never (less than 100 in lifetime) entered on: 02/25/20 Sex Patient Care team information Care Team Personnel Name: Megan Recio MD Position: [facility] Resident Member Role: PCP Address: Address: [address] [place] [phone]- Care Team Related Persons Name: ELA WARE Address: [address] [place] [address] Name: LIANA WARE Address: [address] Address: [address] [place] [address] Name: LUBA VACA Address: home [address] [place] [id number]
--- OUTSIDE RECORDS SUMMARY | 2022-10-12 08:13 | XMS_ITS | Continuity of Care Document ---
Author Name Unknown Organization [facility] ter Address [address] [place] [id number]- Care Team Providers Care Plaster Mechanic Name Role Phone Felicia Eller MD Primary Care Physician [phone] Encounter [facility] [place] Date(s): 09/17/20 - 09/19/[address] [address]- Discharge Disposition: A-D/C Home Attending Physician: Vannessa Dobbins MD Admitting Physician: Vannessa Dobbins MD Referring Physician: Vannessa Dobbins MD Allergies, Adverse Reactions, Alerts Substance Reaction Severity Status NKA Active Immunizations Given and Recorded Vaccine Date Status Refusal Reason Measles/Mumps/Rubella Virus Vaccine 09/17/20 Given tetanus/diphtheria/pertussis, acel(Tdap) 08/03/20 Given influenza virus vaccine, inactivated 01/27/20 Give n Medications Acetaminophen Tablet 650 mg, Tablet, By Mouth, Every 4 hours, PRN for Pain , Mild, (1-3), may give 325mg per patient preference and re-dose with 325mg within 4 hours, if needed. Patient should only receive a total of 650mg of Acetaminophen every 4 hours., Routine, 09/17... Start Date: 09/17/20 Stop Date: 09/19/20 Status: Discontinued ibuprofen 600 mg oral tablet 600 mg, 1, tablet, By Mouth, Every 6 hours, PRN, with food or milk, # 40 tablet, Refills 0, Tot. Refills 0, Acute 09/22/20 12:00:00 EDT, Pain , Mild, 09/19/20 11:30:00 EDT, Route to Pharmacy Electronically, [facility]/pharmacy #[id number], Partial fill upon patien... Start Date: 09/19/20 Stop Date: 09/22/20 Status: Ordered Ibuprofen Tablet 800 mg, Tablet, By Mouth, Every 8 hours, PRN for Pain , Moderate, (4-6), may give 400mg per patientpreference and re-dose with 400mg within 8 hours if needed. Patient should only receive a total of 800mg of Ibuprofen every 8 hours., Routine, ... Start Date: 09/17/20 Stop Date: 09/19/20 Status: Discontinued Multivitamins with FA 0.8 mg oral tablet 1 tablet, By Mouth, Daily, # 60 tablet, 8 Refills, Maintenance, 02/11/20 11:34:00 EST, Tablet, [facility]/pharmacy #[id number], Partial fill upon patient request if the prescription is for a schedule II opioid drug., 1 tablet By Mouth Daily Start Date: 02/11/20 Status: Ordered Problem List Condition Effective Dates Status Health Status Inform ant Participant in Babyscripts Program(Confirmed) Active BMI 32.4, pre-(Confirmed) Active Rubella non-immune(Confirmed) Active Vital Signs Most recent to oldest [Reference Range]: 1 2 3 Height 164.4 cm (09/19/20 12:00 PM) 164.4 cm (09/18/20 11:20 PM) 164.4 cm (09/18/20 4:00 PM) Weight 96 kg (09/17/20 4:09 PM) 96 kg (09/17/20 4:05 PM) 96.8 kg (09/17/20 2:10 PM) Oxygen Saturation [94-100 %] 95 % (09/19/20 12:00 PM) 100 % (09/18/20 11:20 PM) 98 % (09/18/20 4:00 PM) Pulse Rate [55-90 bpm] 66 bpm (09/19/20 12:00 PM) 82 bpm (09/18/20 11:20 PM) 100 bpm *H* (09/18/20 4:00 PM) Body Mass Index [18.5-24.99] 35.52 *>HHI* (09/17/20 4:05 PM) Blood Pressure [90-138/55-84 mm Hg] 107/61mm Hg (09/19/20 12:00 PM) 105/57mm Hg (09/18/20 11:20 PM) 125/70mm Hg (09/18/20 4:00 PM) Respiratory Rate [16-30 br/min] 18 br/min (09/19/20 12:00 PM) 18 br/min (09/19/20 5:22 AM) 18 br/min (09/19/20 1:46 AM) Temperature [96.8-100.4 DegF] 98 DegF (09/19/20 12:00 PM) 97.2 DegF (09/18/20 11:20 PM) 97.9 DegF (09/18/20 4:00 PM) Mode of Delivery (Oxygen) Room air (09/18/20 11:20 PM) Room air (09/18/20 4:00 PM) Room air (09/18/20 8:00 AM) Blood pressure sites Arm, left (09/18/20 11:20 PM) Arm, left (09/18/20 4:00 PM) Arm, left (09/18/20 8:00 AM) Temperature Route Oral (09/19/20 12:00 PM) Oral (09/18/20 11:20 PM) Oral (09/18/20 4:00 PM) Dry Weight 96 kg (09/17/20 4:05 PM) 96.8 kg (09/17/20 2:10 PM) Weight Obtained Via Patient/family state d (09/17/20 4:05 PM) Standing scale (09/17/20 2:10 PM) Dry Weight Obtained Via Standing scale (09/17/20 2:10 PM) Social History Social History Type Response Smoking Status Never (less than 100 in lifetime) entered on: 02/25/20 Sex
--- OUTSIDE RECORDS SUMMARY | 2022-10-12 08:13 | XMS_ITS | Continuity of Care Document ---
Author Name Unknown Organization [facility] Address Unknown Care Team Providers Care Printer Slotter Helper Name Role Phone Felicia Eller MD Primary Care Physician [phone] Encounter [facility] Date(s): 09/16/20 - 10/16/20 [facility] Allergies, Adverse Reactions, Alerts Substance Reaction Severity [...] 09/24/20 8:57:00 EDT, Route to Pharmacy Electronically, [facility]/pharmacy #[id number], Partial fill upon patient request if the prescription is... Start Date: 09/24/20 Status: Ordered Multivitamins with FA 0.8 mg [...]
--- OUTSIDE RECORDS SUMMARY | 2022-10-12 08:13 | XMS_ITS | Continuity of Care Document ---
Author Name Unknown Organization [facility] janee Address [address] [place] [address] [address] [place] [address]- Care Team Providers Care Environmental Health Sanitarian Name Role Phone Felicia Eller MD Primary Care Physician [phone] Encounter [facility] Date(s): 03/14/22 - 04/13/22 [facility] [address] [place], [place] [address] Allergies, Adverse Reactions, Alerts No Known Allergies [...] 09/24/20 8:57:00 EDT, Route to Pharmacy Electronically, [facility]/pharmacy #[id number], Partial fill upon patient request if the prescription is... Start Date: 09/24/20 Status: Ordered copper intrauterine device See Instructions, Bring to office for insertion., # 1 each, 0 Refills, Maintenance, 11/02/20 9:20:00 EDT, [facility], Partial fill upon patient request if the prescription is for a schedule II opioid drug., 164.4, cm, 09/19/20 12:24:0... Start Date: 11/02/20 Status: Ordered MiraLax oral powder for reconstitution = 17 Gm, By Mouth, Daily, dissolve in water before taking, # 255 Gm, 2 Refills, Maintenance, 02/23/22 9:51:00 EST, REC Powder, [facility]/pharmacy #[id number], Partial fill upon patient request if [...] Confirmed Active Obese class II Confirmed Active Rubella non-immune Confirmed Active Social History Social History Type Response Smoking Status Never (less than 100 in lifetime) entered on: 02/25/20 Sex Patient Care team information Care Team Personnel Name: Felicia Eller MD Position: [facility] Resident Member Role: PCP Address: Address: [address] [place] [address]- Care Team Related Persons Name: ELA WARE Address: home [address] [place], [place] Name: LIANA WARE Address: [address] Address: home [address], [place] Name: LUBA VACA Address: home [address] [place] [address]
--- OUTSIDE RECORDS SUMMARY | 2022-10-12 08:13 | XMS_ITS | Continuity of Care Document ---
Author Name Unknown Organization [facility] Address Unknown Care Team Providers Care Steam Conditioning Operator Name Role Phone Rafita CHANG, Felicia Primary Care Physician [phone] [place] [facility] Date(s): 07/20/20 - 09/30/20 [facility] Attending Physician: Not on Staff, Attending MD Referring Physician: Leah Baca CNM Allergies, Adverse Reactions, Alerts Substance Reaction [...] 09/24/20 8:57:00 EDT, Route to Pharmacy Electronically, [facility]/pharmacy #[id number], Partial fill upon patient request if the prescription is... Start Date: 09/24/20 Status: Ordered Multivitamins with FA 0.8 mg oral tablet 1 tablet, By Mouth, Daily, # 60 tablet, 8 Refills, Maintenance, 02/11/20 11:34:00 EST, Tablet, [facility]/pharmacy #[id number], Partial fill upon patient request if [...]
--- OUTSIDE RECORDS SUMMARY | 2022-10-12 08:13 | XMS_ITS | Continuity of Care Document ---
Author Name Unknown Organization [facility] Address [address] [address]- Care Team Providers Care Register In Chancery Name Role Phone Rafita CHANG, Felicia Primary Care Physician [phone] En[place] [facility] Date(s): 02/25/20 - 03/26/20 [facility] [address] [address]- Attending Physician: Chelsy Pride Admitting Physician: Chelsy Pride Referring Physician: Chelsy Pride Allergies, Adverse Reactions, Alerts Substance Reaction Severity Status NKA Active Immunizations Given and Recorded Vaccine Date Status Refusal Reason influenza virus vaccine, inactivated 01/27/20 Give n Medications hydrocortisone 1% topical cream 1 application, Topically, 2 times a day, # 14 Gm, 0 Refills, Maintenance, 01/27/20 10:47:00 EST, Cream, [id number], 1 application Topically 2 times a day Start Date: 01/27/20 Status: Ordered Multivitamins with FA 0.8 mg [...]
--- OUTSIDE RECORDS SUMMARY | 2022-10-12 08:13 | XMS_ITS | Continuity of Care Document ---
Author Name Unknown Organization [facility] Address [address] [facility], [address]t [place] [address]- Care Team Providers Care Construction Supervisor Name Role Phone Rafita CHANG, Felicia Primary Care Physician [place] [facility] [place]13[place] - [facility]/[facility] [address] [facility], [address]th [place] [address]- Attending Physician: Chelsy Pride Admitting Physician: AdmChelsy mejia Referring Physician: AdmtrChelsy Allergies, Adverse Reactions, Alerts Substance Reaction Severity Status NKA Active Immunizations Given and Recorded Vaccine Date Status Refusal Reason influenza virus vaccine, inactivated 01/27/20 Give n Medications aspirin 81 mg oral delayed release tablet 162 mg, 2, tablet, By Mouth, Daily, # 120 tablet, Refills 4, Tot. Refills 4, Maintenance, 04/15/20 19:09:00 EST, [facility], Partial fill upon patient request if the prescription is for a schedule II opioid drug., 163, cm, 04/15/20 18:18:00 EST... Start Date: 04/15/20 Status: Ordered Pepcid 20 mg oral tablet 1 tablet = 20 mg, By Mouth, Daily at bedtime, # 90 tablet, 2 Refills, Maintenance, 06/08/20 15:40:00 EDT, Tablet, [facility], Partial fill upon patient request if the prescription isfor a schedule II opioid drug., 163, cm, 06/08/20 1... Start Date: 06/08/20 Status: Ordered Multivitamins with FA 0.8 mg oral tablet 1 tablet, By Mouth, Daily, # 60 tablet, 8 Refills, Maintenance, 02/11/20 11:34:00 EST, Tablet, [facility]/pharmacy #[id number], Partial fill upon patient request if the prescription is for a schedule II opioid drug., 1 tablet By Mouth Daily Start Date: 02/11/20 Status: Ordered Multivitamins with Folic Acid 1 mg oral capsule 1 capsule, By Mouth, Daily, # 100 capsule, 1 Refills, Maintenance, 06/08/20 15:41:00 EDT, Capsule, [facility], Partial fill upon patient request if the prescription is for a scheduleII opioid drug., 1 capsule By Mouth Daily, 163, cm,... Start Date: 06/08/20 Status: Ordered Problem List Condition Effective Dates Status Health Status Inform ant Participant in Babyscripts Program(Confirmed) Active BMI 32.4, pre-(Confirmed) Active Rubella non-immune(Confirmed) Active Social History Social History Type Response Smoking Status Never (less than 100 in lifetime) entered on: 02/25/20 Sex
--- OUTSIDE RECORDS SUMMARY | 2022-10-12 08:13 | XMS_ITS | Continuity of Care Document ---
Author Name Unknown Organization [facility] Address [address] [address]- Care Team Providers Care Process Technician Name Role Phone Rafita CHANG, Felicia Primary Care Physician [facility]counter [facility] Date(s): 05/24/22 - 06/23/22 [facility] [address] [address] Attending Physician: Chelsy Pride Admitting Physician: Chelsy Pride Referring Physician: Chelsy Pride Allergies, Adverse Reactions, Alerts No Known Allergies [...] 09/24/20 8:57:00 EDT, Route to Pharmacy Electronically, [facility]/pharmacy #[id number], Partial fill upon patient request if the prescription is... Start Date: 09/24/20 Status: Ordered copper intrauterine device See Instructions, Bring to office for insertion., # 1 each, 0 Refills, Maintenance, 11/02/20 9:20:00 EDT, [facility], Partial fill upon patient request if the prescription is for a schedule II opioid drug., 164.4, cm, 09/19/20 12:24:0... Start Date: 11/02/20 Status: Ordered MiraLax oral powder for reconstitution = 17 Gm, By Mouth, Daily, dissolve in water before taking, # 255 Gm, 2 Refills, Maintenance, 02/23/22 9:51:00 EST, REC Powder, [facility]/pharmacy #[id number], Partial fill upon patient request if the [...] Team Personnel Name: Felicia Eller MD Position: [facility] Resident Member Role: PCP Address: Address: [address] [place] [address]- Care Team Related Persons Name: ELA WARE Address: [address] [place] [address] Name: LIANA WARE Address: [address] Address: [address] [place] [address] Name: LUBA VACA Address: [address] [address]
--- OUTSIDE RECORDS SUMMARY | 2022-10-12 08:13 | XMS_ITS | Continuity of Care Document ---
Author Name Unknown Organization [facility] Address [address] [address]- Care Team Providers Care Caretaker Grounds Name Role Phone Felicia Eller MD Primary Care Physician [place] [facility] [place] 04/20/22 - 06/08/22 [facility] [address] [address]- Attending Physician: Not on Staff, Attending MD Referring Physician: Felicia Eller MD Allergies, Adverse Reactions, Alerts No Known Allergies [...] Route to Pharmacy Electronically, [facility]/pharmacy #[id number], Partial fill upon patient request if the prescription is... Start Date: 09/24/20 Status: Ordered copper intrauterine device See Instructions, Bring to office for insertion., # 1 each, 0 Refills, Maintenance, 11/02/20 9:20:00 EDT, [facility], Partial fill upon patient request if the prescription is for a schedule II opioid drug., 164.4, cm, 09/19/20 12:24:0... Start Date: 11/02/20 Status: Ordered MiraLax oral powder for reconstitution = 17 Gm, By Mouth, Daily, dissolve in water before taking, # 255 Gm, 2 Refills, Maintenance, 02/23/22 9:51:00 EST, REC Powder, [facility]/pharmacy #[id number], Partial fill upon patient request if the [...] Team Personnel Name: Felicia Eller MD Position: [facility] Resident Member Role: PCP Address: Address: [address] [place] [address]- Care Team Related Persons Name: ELA WARE Address: [address] [place] [address] Name: LIANA WARE Address: [address] Address: [address] [place] [address] Name: LUBA VACA Address: home [address] [place] [address]
--- OUTSIDE RECORDS SUMMARY | 2022-10-12 08:13 | XMS_ITS | Continuity of Care Document ---
Author Name Unknown Organization [facility] Address [address] [facility], [address] [place] [address]- Care Team Providers Care It Security Engineer Name Role Phone Rafita CHANG, Felicia Primary Care Physician [phone] [place] [facility] Date(s): 03/03/20 - 04/02/20 [facility] [address] [facility], [address] [place] [address]- Attending Physician: Tegan Bonilla MD Referring Physician: Rosaura Mooney CNM Allergies, Adverse Reactions, Alerts Substance Reaction [...]
--- OUTSIDE RECORDS SUMMARY | 2022-10-12 08:13 | XMS_ITS | Continuity of Care Document ---
Author Name Unknown Organization [facility] Address [address] [place] [address]- Care Team Providers Care Cable Worker Helper Name Role Phone Rafita CHANG, Felicia Primary Care Physician [phone] En[place] [facility] Date(s): 06/23/21 - 07/23/[address] [address]- Allergies, Adverse Reactions, Alerts No Known Allergies [...] 09/24/20 8:57:00 EDT, Route to Pharmacy Electronically, [facility]/pharmacy #[id number], Partial fill upon patient request if the prescription is... Start Date: 09/24/20 Status: Ordered copper intrauterine device See Instructions, Bring to office for insertion., # 1 each, 0 Refills, Maintenance, 11/02/20 9:20:00 EDT, [facility], Partial fill upon patient request if the prescription is for a schedule II opioid drug., 164.4, cm, 09/19/20 12:24:0... Start Date: 11/02/20 Status: Ordered Multivitamins with FA 0.8 mg oral tablet 1 tablet, By Mouth, Daily, # 60 tablet, 8 Refills, Maintenance, 02/11/20 11:34:00 EST, Tablet, [id number], Partial fill upon patient request if the [...]
--- OUTSIDE RECORDS SUMMARY | 2022-10-12 08:13 | XMS_ITS | Continuity of Care Document ---
Author Name Unknown Organization [facility] Address [address] [facility], 4t [place] [address]- Care Team Providers Care River Guide Name Role Phone Rafita CHANG, Felicia Primary Care Physician [place] [facility] [place]/03/20 - 03/10/20 [facility] [address] [facility], 4th [place] [address]- Attending Physician: Rosaura Mooney CNM Allergies, Adverse Reactions, [...]
--- OUTSIDE RECORDS SUMMARY | 2022-10-12 08:13 | XMS_ITS | Continuity of Care Document ---
Author Name Unknown Organization [facility] Address [address] [place] [address]- Care Team Providers Care Cable Placer Name Role Phone Rafita CHANG, Felicia Primary Care Physician [phone] En[place] [facility] Date(s): 02/09/22 - 03/19/[address] [address]- Attending Physician: Not on Staff, Attending MD Allergies, Adverse Reactions, Alerts No Known [...] 09/24/20 8:57:00 EDT, Route to Pharmacy Electronically, [facility]/pharmacy #[id number], Partial fill upon patient request if the prescription is... Start Date: 09/24/20 Status: Ordered copper intrauterine device See Instructions, Bring to office for insertion., # 1 each, 0 Refills, Maintenance, 11/02/20 9:20:00 EDT, [facility], Partial fill upon patient request if the prescription is for a schedule II opioid drug., 164.4, cm, 09/19/20 12:24:0... Start Date: 11/02/20 Status: Ordered MiraLax oral powder for reconstitution = 17 Gm, By Mouth, Daily, dissolve in water before taking, # 255 Gm, 2 Refills, Maintenance, 02/23/22 9:51:00 EST, REC Powder, [id number], Partial fill upon patient request [...] HOSPITAL Resident Member Role: PCP Address: Address: [address] [place] [address]- Care Team Related Persons Name: ELA WARE Address: [address] [place] [address] Name: LIANA WARE Address: [id number] Address: [address] [place] [address] Name: LUBA VACA Address: home [address] [place] [id number]
--- OUTSIDE RECORDS SUMMARY | 2022-10-12 08:13 | XMS_ITS | Continuity of Care Document ---
Author Name Unknown Organization [facility] Address [address] [place] [address]- Care Team Providers Care Furnace Process Supervisor Name Role Phone Rafita CHANG, Felicia Primary Care Physician Encounter [facility] Date(s): 01/17/20 - 02/16/[address] [address]- Allergies, Adverse Reactions, Alerts Substance Reaction Severity Status NKA Active Immunizations Given and Recorded Vaccine Date Status Refusal Reason influenza virus vaccine, inactivated 01/27/20 Give n Medications hydrocortisone 1% topical cream 1 application, Topically, 2 times a day, # 14 Gm, 0 Refills, Maintenance, 01/27/20 10:47:00 EST, Cream, [facility]/pharmacy #[id number], 1 application Topically 2 times a [...] Mouth Daily Start Date: 02/11/20 Status: Ordered Zofran 4 mg oral tablet 1 tablet = 4 mg, By Mouth, Every 8 hours, PRN Nausea & Vomiting, # 10 tablet, 0 Refills, Maintenance, 10/13/14 1:38:23, Tablet Start Date: 10/13/14 Status: Ordered
--- OUTSIDE RECORDS SUMMARY | 2022-10-12 08:13 | XMS_ITS | Continuity of Care Document ---
Author Name Unknown Organization [facility] Address [address] [place] [address]- Care Team Providers Care Farm Technician Name Role Phone Rafita CHANG, Felicia Primary Care Physician Encounter [facility] Date(s): 01/27/20 - 02/26/[address] [address]- Attending Physician: Chelsy Pride Admitting Physician: AdmChelsy [...] Babyscripts Program(Confirmed) Active BMI 32.4, pre-(Confirmed) Active Social History Social History Type Response Smoking Status Never (less than 100 in lifetime) entered on: 02/25/20 Sex
--- OUTSIDE RECORDS SUMMARY | 2022-10-12 08:13 | XMS_ITS | Continuity of Care Document ---
Author Name Unknown Organization [facility] Address Unknown Care Team Providers Care Commercial Diver Name Role Phone Felicia Eller MD Primary Care Physician En[place] [facility] Date(s): 09/23/20 - 10/23/20 [facility] Allergies, Adverse Reactions, Alerts Substance Reaction Severity [...] 09/24/20 8:57:00 EDT, Route to Pharmacy Electronically, [facility]/pharmacy #[id number], Partial fill upon patient request [...]
--- OUTSIDE RECORDS SUMMARY | 2022-10-12 08:13 | XMS_ITS | Continuity of Care Document ---
Author Name Unknown Organization [facility] Address Unknown Care Team Providers Care Auto Wrecker Name Role Phone Rafita CHANG, Felicia Primary Care Physician [place] [facility] [place]s): 11/13/20 - 12/13/20 [facility] Attending Physician: Chelsy Pride Admitting Physician: AdmtrChelsy Referring Physician: Admtr, ArSheba Allergies, Adverse Reactions, Alerts Substance Reaction Severity [...] 09/24/20 8:57:00 EDT, Route to Pharmacy Electronically, [facility]/pharmacy #[id number], Partial fill upon patient request if the prescription is... Start Date: 09/24/20 Status: Ordered copper intrauterine device See Instructions, Bring to office for insertion., # 1 each, 0 Refills, Maintenance, 11/02/20 9:20:00 EDT, [facility], Partial fill upon patient request if the prescription is for a schedule II opioid drug., 164.4, cm, 09/19/20 12:24:0... Start Date: 11/02/20 Status: Ordered Multivitamins with FA 0.8 mg oral tablet 1 tablet, By Mouth, Daily, # 60 tablet, 8 Refills, Maintenance, 02/11/20 11:34:00 EST, Tablet, [id number], Partial fill upon patient request if the [...]
--- OUTSIDE RECORDS SUMMARY | 2022-10-12 08:13 | XMS_ITS | Continuity of Care Document ---
Author Name Unknown Organization [facility] Address [address] [address]- Care Team Providers Care Program Director Name Role Phone Rafita CHANG, Felicia Primary Care Physician Encounter [facility] Date(s): 01/28/20 - 02/27/20 [facility] [address] [address] Allergies, Adverse Reactions, Alerts Substance Reaction Severity [...]
--- OUTSIDE RECORDS SUMMARY | 2022-10-12 08:13 | XMS_ITS | Continuity of Care Document ---
Author Name Unknown Organization [facility] Address [address] [place] [address]- Care Team Providers Care Manufacturing Planner Name Role Phone Rafita CHANG, Felicia Primary Care Physician [place] [facility]/08/[place] - 08/07/[address] [address]- Allergies, Adverse Reactions, Alerts Substance Reaction Severity Status NKA Active Immunizations Given and Recorded Vaccine Date Status Refusal Reason tetanus/diphtheria/pertussis, acel(Tdap) 08/03/20 Given influenza virus vaccine, inactivated 01/27/20 Give n Medications Pepcid 20 mg oral tablet 1 tablet = 20 mg, By Mouth, Daily at bedtime, # 90 tablet, 2 Refills, Maintenance, 06/08/20 15:40:00 EDT, Tablet, [facility], Partial fill upon patient request if the prescription isfor a schedule II opioid drug., 163, cm, 06/08/20 1... Start Date: 06/08/20 Status: Ordered Multivitamins with FA 0.8 mg oral tablet 1 tablet, By Mouth, Daily, # 60 tablet, 8 Refills, Maintenance, 02/11/20 11:34:00 EST, Tablet, [facility]/pharmacy #[id number], Partial fill upon patient request if the [...]
--- OUTSIDE RECORDS SUMMARY | 2022-10-12 08:13 | XMS_ITS | Continuity of Care Document ---
Author Name Unknown Organization [facility] Address [address] [place] [address]- Care Team Providers Care Burglar Alarm Superintendent Name Role Phone Rafita CHANG, Felicia Primary Care Physician Encounter [facility] Date(s): 01/15/20 - 02/14/[address] [address]- Allergies, Adverse Reactions, Alerts Substance Reaction Severity Status NKA Active Immunizations Given and Recorded Vaccine Date Status Refusal Reason influenza virus vaccine, inactivated 01/27/20 Give n Medications hydrocortisone 1% topical cream 1 application, Topically, 2 times a day, # 14 Gm, 0 Refills, Maintenance, 01/27/20 10:47:00 EST, Cream, [facility]/pharmacy #[id number], 1 application Topically 2 times a day Start Date: 01/27/20 Status: Ordered Multivitamins with FA 0.8 mg oral tablet 1 tablet, By Mouth, Daily, # 60 tablet, 8 Refills, Maintenance, 02/11/20 11:34:00 EST, Tablet, [facility]/pharmacy #[id number], Partial fill upon patient request [...]
--- OUTSIDE RECORDS SUMMARY | 2022-10-12 08:13 | XMS_ITS | Continuity of Care Document ---
Author Name Unknown Organization [facility] Address Unknown Care Team Providers Care Torts Law Professor Name Role Phone Rafita CHANG, Felicia Primary Care Physician [phone] Encounter [facility] Date(s): 11/06/20 - 12/06/20 [facility] Allergies, Adverse Reactions, Alerts Substance Reaction [...] 09/24/20 8:57:00 EDT, Route to Pharmacy Electronically, [facility]/pharmacy #[id number], Partial fill upon patient request if the prescription is... Start Date: 09/24/20 Status: Ordered copper intrauterine device See Instructions, Bring to office for insertion., # 1 each, 0 Refills, Maintenance, 11/02/20 9:20:00 EDT, [facility], Partial fill upon patient request if the prescription is for a schedule II opioid drug., 164.4, cm, 09/19/20 12:24:0... Start Date: 11/02/20 Status: Ordered Multivitamins with FA 0.8 mg oral tablet 1 tablet, By Mouth, Daily, # 60 tablet, 8 Refills, Maintenance, 02/11/20 11:34:00 EST, Tablet, [facility]/pharmacy #[id number], Partial fill upon patient request if [...]
--- OUTSIDE RECORDS SUMMARY | 2022-10-12 08:13 | XMS_ITS | Continuity of Care Document ---
Author Name Unknown Organization [facility] [place] Address [address] [address]- Care Team Providers Care Search Engine Optimizer Name Role Phone Felicia Eller MD Primary Care Physician [place] [facility] [place] 03[place]/22 - 05/20/22 [facility] [place] [address] [address]- Attending Physician: Not on Staff, Attending MD Referring Physician: Tamara Best CNM Allergies, Adverse Reactions, Alerts No Known Allergies [...] 09/24/20 8:57:00 EDT, Route to Pharmacy Electronically, [facility]/pharmacy #[id number], Partial fill upon patient request if the prescription is... Start Date: 09/24/20 Status: Ordered copper intrauterine device See Instructions, Bring to office for insertion., # 1 each, 0 Refills, Maintenance, 11/02/20 9:20:00 EDT, [facility], Partial fill upon patient [...] Confirmation Course Effective Dates Status Health St at Informant Participant in Babyscripts Program Confirmed Active BMI 32.4, pre- Confirmed Active Obese class II Confirmed Active Rubella non-immune Confirmed Active Social History Social History Type Response Smoking Status Never (less than 100 in lifetime) entered on: 02/25/20 Sex Patient Care team information Care Team Personnel Name: Felicia Eller MD Position: S Resident Member Role: PCP Address: Address: [address] [place] [address]- Care Team Related Persons Name: ELA WARE Address: [address] [place] [address] Name: LIANA WARE Address: [address] Address: [address] [place] [address] [place] Name: IRASEMA VACAONA Address: home [address] [place] [id number]
--- OUTSIDE RECORDS SUMMARY | 2022-10-12 08:13 | XMS_ITS | Continuity of Care Document ---
Author Name Unknown Organization [facility] Address Unknown Care Team Providers Care Senior Project Accountant Name Role Phone Rafita CHANG, Felicia Primary Care Physician [phone] Encounter [place] Date(s): 08/31/20 - 09/30/20 [facility] Allergies, Adverse Reactions, Alerts Substance Reaction Severity [...] 09/24/20 8:57:00 EDT, Route to Pharmacy Electronically, [facility]/pharmacy #[id number], Partial fill upon patient request if [...]
--- OUTSIDE RECORDS SUMMARY | 2022-10-12 08:14 | XMS_ITS | Continuity of Care Document ---
Author Name Unknown Organization [facility] Address [address] [place] [address]- Care Team Providers Care Clinical Laboratory Aides Teacher Name Role Phone Rafita CHANG, Felicia Primary Care Physician En[facility] [place] Date(s): 02/25/22 - 04/17/22 [facility] [address] [address]- Attending Physician: Not on Staff, Attending MD Referring Physician: Rosaura Rivera CNM Allergies, Adverse Reactions, Alerts No Known [...] 09/24/20 8:57:00 EDT, Route to Pharmacy Electronically, [facility]/pharmacy #[id number], Partial fill upon patient request if the prescription is... Start Date: 09/24/20 Status: Ordered copper intrauterine device See Instructions, Bring to office for insertion., # 1 each, 0 Refills, Maintenance, 11/02/20 9:20:00 EDT, [facility], Partial fill upon patient [...] Team Personnel Name: Felicia Eller MD Position: [facility] Resident Member Role: PCP Address: Address: [address] [place] [address]- Care Team Related Persons Name: ELA WARE Address: [address] [place] [address] Name: LIANA WARE Address: [address] Address: home [address] [place] [address] Name: LUBA VACA Address: home [address] [place] [address]
--- OUTSIDE RECORDS SUMMARY | 2022-10-12 08:14 | XMS_ITS | Continuity of Care Document ---
Author Name Unknown Organization [facility] Address Unknown Care Team Providers Care Audio Visual Equipment Rental Clerk Name Role Phone Rafita CHANG, Felicia Primary Care Physician Encounter [facility] [place] Date(s): 10/09/20 - 11/08/20 [facility] Allergies, Adverse Reactions, Alerts Substance Reaction [...] 09/24/20 8:57:00 EDT, Route to Pharmacy Electronically, [facility]/pharmacy #[id number], Partial fill upon patient request if the prescription is... Start Date: 09/24/20 Status: Ordered copper intrauterine device See Instructions, Bring to office for insertion., # 1 each, 0 Refills, Maintenance, 11/02/20 9:20:00 EDT, [facility], Partial fill upon patient request if the prescription is for a schedule II opioid drug., Bring to office for inserti... Start Date: 11/02/20 Status: Ordered Multivitamins with FA 0.8 mg oral tablet 1 tablet, By Mouth, Daily, # 60 tablet, 8 Refills, Maintenance, 02/11/20 11:34:00 EST, Tablet, [facility]/pharmacy #[id number], Partial fill upon patient [...]
--- OUTSIDE RECORDS SUMMARY | 2022-10-12 08:14 | XMS_ITS | Continuity of Care Document ---
Author Name Unknown Organization [facility] Address [address] [address]- Care Team Providers Care Restaurant Manager Name Role Phone Rafita CHANG, Felicia Primary Care Physician [facility]counter [facility] Date(s): 02/25/20 - 04/08/20 [facility] [address] [address]- Attending Physician: Not on Staff, Attending MD Referring Physician: Rosaura Mooney CNM Allergies, [...]
--- OUTSIDE RECORDS SUMMARY | 2022-10-12 08:14 | XMS_ITS | Continuity of Care Document ---
Author Name Unknown Organization [facility] Address Unknown Care Team Providers Care Digital Print Operator Name Role Phone Felicia Eller MD Primary Care Physician En[place] [facility] [place] Date(s): 07/20/20 - 10/21/20 [facility] Attending Physician: Not on Staff, Attending MD [...] 09/24/20 8:57:00 EDT, Route to Pharmacy Electronically, [facility]/pharmacy #[id number], Partial fill upon patient request if the prescription is... Start Date: 09/24/20 Status: Ordered Multivitamins with FA 0.8 mg oral tablet 1 tablet, By Mouth, Daily, # 60 tablet, 8 Refills, Maintenance, 02/11/20 11:34:00 EST, Tablet, [facility]/pharmacy #[id number], Partial fill upon patient request if [...]
--- OUTSIDE RECORDS SUMMARY | 2022-10-12 08:14 | XMS_ITS | Continuity of Care Document ---
Author Name Unknown Organization [facility] ter Address [address] [place] [address]- Care Team Providers Care Garage Laborer Name Role Phone Felicia Eller MD Primary Care Physician [phone] [place] [facility] [place] 08/29/20 - 08/29/[address] [address]- Discharge Disposition: A-D/C Home Attending Physician: Radha Ortez MD Admitting Physician: Radha Ortez MD Referring Physician: Radha Ortez MD Allergies, Adverse Reactions, Alerts Substance Reaction Severity Status NKA Active Immunizations Given and Recorded Vaccine Date Status Refusal Reason tetanus/diphtheria/pertussis, acel(Tdap) 08/03/20 Given influenza virus vaccine, inactivated 01/27/20 Give n Medications Pepcid 20 mg oral tablet 1 tablet = 20 mg, By Mouth, Daily at bedtime, # 90 tablet, 2 Refills, Maintenance, 06/08/20 15:40:00 EDT, Tablet, [facility], Partial fill upon patient request if the prescription isfor a schedule II opioid drug., 163, cm, 06/08/20 1... Start Date: 06/08/20 Status: Ordered Multivitamins with FA 0.8 mg oral tablet 1 tablet, By Mouth, Daily, # 60 tablet, 8 Refills, Maintenance, 02/11/20 11:34:00 EST, Tablet, [facility]/pharmacy #[id number], Partial fill upon patient request if the prescription is for a schedule II opioid drug., 1 tablet By Mouth Daily Start Date: 02/11/20 Status: Ordered Problem List Condition Effective Dates Status Health Status Inform ant Participant in Babyscripts Program(Confirmed) Active BMI 32.4, pre-(Confirmed) Active Rubella non-immune(Confirmed) Active Vital Signs Most recent to oldest [Reference Range]: 1 Height 163 cm (08/29/20 6:33 PM) Weight 96.2 kg (08/29/20 6:33 PM) Pulse Rate [55-90 bpm] 110 bpm *H* (08/29/20 6:33 PM) Body Mass Index [18.5-24.99] 36.21 *>HHI* (08/29/20 6:33 PM) Blood Pressure [90-138/55-84 mm Hg] 114/ 70mm Hg (08/29/20 6:33 PM) Respiratory Rate [16-30 br/min] 16 br/mi n (08/29/20 6:33 PM) Temperature [96.8-100.4 DegF] 98.4 DegF (08/29/20 6:33 PM) Blood pressure sites Arm, right (08/29/20 6:33 PM) Temperature Route Oral (08/29/20 6:33 PM) Social History Social History Type Response Smoking Status Never (less than 100 in lifetime) entered on: 02/25/20 Sex
--- OUTSIDE RECORDS SUMMARY | 2022-10-12 08:14 | XMS_ITS | Continuity of Care Document ---
Author Name Unknown Organization [facility] ter Address [address] [place] [address]- Care Team Providers Care Yarn Weight And Strength Tester Name Role Phone Felicia Eller MD Primary Care Physician [phone] Encounter [place] Date(s): 03/06/20 - 03/06/[address] [address]- Encounter Diagnosis Upper respiratory virus(Final) - 03/06/20 Discharge Disposition: A-D/C Home Attending Physician: Kelly Verde MD Admitting Physician: Kelly Verde MD Referring Physician: Not on Staff, Referring MD Allergies, Adverse Reactions, Alerts Substance Reaction [...] recent to oldest [Reference Range]: 1 2 Oxygen Saturation [94-100 %] 96 % (1/29/21 11:24 AM) 100 % (03/06/20 9:36 AM) Pulse Rate [55-90 bpm] 94 bpm *H* (03/06/20 11:24 AM) 84 bpm (03/06/20 9:36 AM) Blood Pressure [90-138/55-84 mm Hg] 111/ 68mm Hg (03/06/20 11:24 AM) 107/71mm Hg (03/06/20 9:36 AM) Respiratory Rate [16-30 br/min] 18 br/mi n (03/06/20 11:24 AM) 18 br/min (03/06/20 9:36 AM) Temperature [96.8-100.4 DegF] 98.4 DegF (03/06/20 11:24 AM) 97.6 DegF (03/06/20 9:36 AM) Mode of Delivery (Oxygen) Room air (03/06/20 11:24 AM) Room air (03/06/20 9:36 AM) Blood pressure sites Arm, left (03/06/20 11:24 AM) Arm, left (03/06/20 9:36 AM) Temperature Route Oral (03/06/20 11:24 AM) Oral (03/06/20 9:36 AM) Social History Social History Type Response Smoking Status Never (less than 100 in lifetime) entered on: 02/25/20 Sex
--- OUTSIDE RECORDS SUMMARY | 2022-10-12 08:14 | XMS_ITS | Continuity of Care Document ---
Author Name Unknown Organization [facility] Address [address] [facility], [address]t [place] [address]- Care Team Providers Care Spa Assistant Manager Name Role Phone Rafita CHANG, Felicia Primary Care Physician En[facility] [place] Date(s): 03/03/20 - 04/02/20 [facility] [address] [facility], 4th [place] [address]- Attending Physician: Chelsy Pride Admitting Physician: Chelsy [...]
--- OUTSIDE RECORDS SUMMARY | 2022-10-12 08:14 | XMS_ITS | Continuity of Care Document ---
Author Name Unknown Organization [facility] [employer] Address [address] [place] [address], [address] [place] [address]- Care Team Providers Care Slot Floor Attendant Name Role Phone Rafita CHANG, Felicia Primary Care Physician [id number] - 05/20/20 [facility] [address] [facility], [address] [place] [address]- Attending Physician: Tegan Bonilla MD Referring Physician: [...] 18:18:00 EST... Start Date: 04/15/20 Status: Ordered Multivitamins with FA 0.8 mg oral tablet 1 tablet, By Mouth, Daily, # 60 tablet, 8 Refills, Maintenance, 02/11/20 11:34:00 EST, Tablet, [id number], Partial fill upon patient request if the [...]
--- OUTSIDE RECORDS SUMMARY | 2022-10-12 08:14 | XMS_ITS | Continuity of Care Document ---
Author Name Unknown Organization [facility] Address [address] [place] [address]- Care Team Providers Care Orthopedics Nurse Name Role Phone Rafita CHANG, Felicia Primary Care Physician Encounter [facility] [place] Date(s): 02/23/22 - 03/25/[address] [address]- Attending Physician: Chelsy Pride Admitting Physician: AdmChelsy mejia Referring Physician: AdmtrChelsy Allergies, Adverse Reactions, Alerts No Known Allergies [...] 09/24/20 8:57:00 EDT, Route to Pharmacy Electronically, [facility]/pharmacy #[id number], Partial fill upon patient request if the prescription is... Start Date: 09/24/20 Status: Ordered copper intrauterine device See Instructions, Bring to office for insertion., # 1 each, 0 Refills, Maintenance, 11/02/20 9:20:00 EDT, [facility], Partial fill upon patient [...] Team Personnel Name: Felicia Eller MD Position: [facility] Resident Member Role: PCP Address: Address: [address] [place] [address]- Care Team Related Persons Name: ELA WARE Address: [address] [place] [address] Name: LIANA WARE Address: [address] Address: [address] [place] [address] [place] Name: SALLUBA TERRAZAS Address: home [address] [place] [address]
--- OUTSIDE RECORDS SUMMARY | 2022-10-12 08:14 | XMS_ITS | Continuity of Care Document ---
Author Name Unknown Organization [facility] Address Unknown Care Team Providers Care Feedlot Manager Name Role Phone Felicia Eller MD Primary Care Physician [phone] Encounter [facility] [place] Date(s): 09/17/20 - 10/17/20 [facility] Allergies, Adverse Reactions, Alerts Substance Reaction [...] 09/24/20 8:57:00 EDT, Route to Pharmacy Electronically, [facility]/pharmacy #[id number], Partial fill upon patient request [...]
--- OUTSIDE RECORDS SUMMARY | 2022-10-12 08:14 | XMS_ITS | Continuity of Care Document ---
Author Name Unknown Organization [facility] Address [address] [place] [address]- Care Team Providers Care Rn Documentation Specialist Name Role Phone Rafita CHANG, Felicia Primary Care Physician [phone] [facility] [id number] Date(s): 06/23/21 - 07/23/[address] [address]- Attending Physician: Chelsy Pride Admitting Physician: AdmChelsy [...] 09/24/20 8:57:00 EDT, Route to Pharmacy Electronically, [facility]/pharmacy #[id number], Partial fill upon patient request if the [...] 11:34:00 EST, Tablet, [facility]/pharmacy #[id number], Partial fill upon patient request if the [...]
--- OUTSIDE RECORDS SUMMARY | 2022-10-12 08:14 | XMS_ITS | Continuity of Care Document ---
Author Name Unknown Organization [facility] Address [address] [place] [address] [address] [place] [address]- Care Team Providers Care Manufacturing Shift Supervisor Name Role Phone Megan Recio MD Primary Care Physician Encounter [facility] Date(s): 04/12/22 - 08/10/22 [facility] [address] [place] [address]- Attending Physician: Yuri Oviedo MD Referring Physician: Felicia Eller MD Allergies, [...] 09/24/20 8:57:00 EDT, Route to Pharmacy Electronically, [facility]/pharmacy #[id number], Partial fill upon patient request if the prescription is... Start Date: 09/24/20 Status: Ordered copper intrauterine device See Instructions, Bring to office for insertion., # 1 each, 0 Refills, Maintenance, 11/02/20 9:20:00 EDT, [facility], Partial fill upon patient request if the prescription is for a schedule II opioid drug., 164.4, cm, 09/19/20 12:24:0... Start Date: 11/02/20 Status: Ordered MiraLax oral powder for reconstitution = 17 Gm, By Mouth, Daily, dissolve in water before taking, # 255 Gm, 2 Refills, Maintenance, 02/23/22 9:51:00 EST, REC Powder, [facility]/pharmacy #[id number], Partial fill upon patient request if the [...] Team Personnel Name: Megan Recio MD Position: [facility] Resident Member Role: PCP Address: Address: [address] [place] [address]- Care Team Related Persons Name: ELA WARE Address: [address] [place] [address] Name: LIANA WARE Address: [address] Address: [address] [place] [address] Name: LUBA VACA Address: home [address] [place] [address]
--- OUTSIDE RECORDS SUMMARY | 2022-10-12 08:14 | XMS_ITS | Continuity of Care Document ---
Author Name Unknown Organization [facility] Address [address] [place] [address]- Care Team Providers Care Fishing Boat Captain Name Role Phone Felicia Eller MD Primary Care Physician [place] [facility] [place] - 06/19/[address] [address]- Attending Physician: Chelsy Pride Admitting Physician: AdmtrChelsy Referring Physician: Admtr, Ar8 Allergies, Adverse Reactions, Alerts Substance Reaction Severity [...] 2 Refills, Maintenance, 06/08/20 15:40:00 EDT, Tablet, [facility], Partial fill upon patient request if the prescription isfor a schedule II opioid drug., 163, cm, 06/08/20 1... Start Date: 06/08/20 Status: Ordered Multivitamins with FA 0.8 mg oral tablet 1 tablet, By Mouth, Daily, # 60 tablet, 8 Refills, Maintenance, 02/11/20 11:34:00 EST, Tablet, [facility]/pharmacy #[id number], Partial fill upon patient request if the prescription is for a schedule II opioid drug., 1 tablet By Mouth Daily Start Date: 02/11/20 Status: Ordered Multivitamins with Folic Acid 1 mg oral capsule 1 capsule, By Mouth, Daily, # 100 capsule, 1 Refills, Maintenance, 06/08/20 15:41:00 EDT, Capsule, [facility], Partial fill upon patient [...]
--- OUTSIDE RECORDS SUMMARY | 2022-10-12 08:14 | XMS_ITS | Continuity of Care Document ---
Author Name Unknown Organization [facility] Address [address] [place] [address]- Care Team Providers Care Senior Technical Trainer Name Role Phone Felicia Eller MD Primary Care Physician En[place] [facility] [place] Date(s): 06/22/21 - 07/23/[address] [address]- Attending Physician: Natty Gore MD, I Admitting Physician: Natty Gore MD, I Referring Physician: Felicia Eller MD Allergies, Adverse [...] 09/24/20 8:57:00 EDT, Route to Pharmacy Electronically, [facility]/pharmacy #[id number], Partial fill upon patient request if the prescription is... Start Date: 09/24/20 Status: Ordered copper intrauterine device See Instructions, Bring to office for insertion., # 1 each, 0 Refills, Maintenance, 11/02/20 9:20:00 EDT, [facility], Partial fill upon patient request if the prescription is for a schedule II opioid drug., 164.4, cm, 09/19/20 12:24:0... Start Date: 11/02/20 Status: Ordered Multivitamins with FA 0.8 mg oral tablet 1 tablet, By Mouth, Daily, # 60 tablet, 8 Refills, Maintenance, 02/11/20 11:34:00 EST, Tablet, [facility]/pharmacy #[id number], Partial fill upon patient request if the [...]
[2022-10-12 08:32] VITALS: BP 102/62; PULSE 85; RESP 16; TEMP 37.1; O2SAT 99
[2022-10-12] MEDS: Amoxicillin/Potassium Clav 875 MG TABLET PO (08:47)
[2022-10-12] MEDS: Lidocaine HCl Viscous 2 % 15 ML SOLUTION MUCOUS MEM (08:48)
[2022-10-12] MEDS: dexAMETHasone sod phosphate 10 MG/ML VIAL IVPUSH (08:49)
[2022-10-12] MEDS: Ketorolac Tromethamine 15 MG/ML VIAL IVPUSH (08:49)
--- NOTE | 2022-10-12 08:58 | PC.NURSE ---
pt a&ox3, vss, currently afebrile, pt verbalizing 7/10 pain in her throat. pt also verbalizes on/off fevers/n/v/spitting up blood. pt states that she has been here since 11pm and has had ibuprofen which did not provide any relief. 20gIV placed in the left AC w/o any complications. medications administered per provider order. pt resting comfortably in no apparent distress.
--- NOTE | 2022-10-12 09:16 | PC.NURSE ---
tech bedside drawing labs.
[2022-10-12 09:21] LABS: MANUAL DIFF FLAG NO
[2022-10-12 09:33] LABS: Basophils Percent Auto 0.3 % (0-2); Eosinophils Percent Auto 0.3 % (0-4); Hematocrit 37.2 % (37.0-47.0); Hemoglobin 12.1 g/dl (12.0-16.0); Imm Gran Abs Auto 0.03 X10*3/uL (0.00-0.03); Imm Gran Pct Auto 0.3 % (0.0-0.4); Lymphocytes Absolute Auto 1.6 X10*3/uL (1.2-4.9); Mean Corpuscular HGB Conc 32.5 g/dl (31.0-35.0); Mean Corpuscular Hemoglobin 27.8 pg (27.0-33.0); Mean Corpuscular Volume 85.5 fL (80.0-98.0); Mean Platelet Volume 9.2 fL (9.4-12.3); Neutrophils Absolute Auto 6.3 x10*3/uL (2.0-8.3); Neutrophils Percent Auto 70.1 % (45-73); Platelet Count 227 X10*3/uL (160-400); Red Blood Count 4.35 X10*6/uL (4.20-5.50); Red Cell Distribution Width 13.7 % (11.0-16.0)
[2022-10-12 09:37] LABS: Anion Gap 11 (12-20); Blood Urea Nitrogen 13 mg/dL (9-16); Calcium 8.7 mg/dL (8.4-10.2); Carbon Dioxide 26 mmol/L (22-29); Chloride 107 mmol/L (96-108); Creatinine Clr Calc Pharmacy 116.4; Estimated Glomerular Filt Rate > 60; Glucose Random 91 mg/dL (60-115); Potassium 3.7 mmol/L (3.3-5.1); Sodium 140 mmol/L (135-145)
[2022-10-12 09:38] LABS: Monotest Negative (Negative)
== END 2022-10-12 11:12 | disposition home or self-care (01) ==
PROVIDERS: Physician Assistant; Emergency Provider Emergency Medicine
DX: J02.9 Acute pharyngitis, unspecified (principal)
CPT/HCPCS: 36415; 80048; 85025; 86308; 96374; 96375; 99284; J1100; J1885

== ENCOUNTER 2023-08-30 09:35 | Emergency (ER) | payer OTHER, SELFPAY ==
[2023-08-30 09:54] VITALS: BP 130/88; PULSE 88; RESP 16; TEMP 36.4; O2SAT 100; BMI 32.6
--- OUTSIDE RECORDS SUMMARY | 2023-08-30 10:04 | XMS_ITS | Continuity of Care Document ---
Author Organization [facility] Address [address] [place] [address]- Care Team Providers Care Aircraft Assembler Name Role Phone Megan Recio MD Primary Care Physician Encounter [facility] Date(s): 12/17/22 - 01/16/[address] [address]- Allergies, Adverse Reactions, Alerts No Known Allergies [...] EDT, Route to Pharmacy Electronically, [facility]/pharmacy #[id number], Partial fill upon patient request if the prescription is... Start Date: 09/24/20 Status: Ordered copper intrauterine device See Instructions, Bring to office for insertion., # 1 each, 0 Refills, Maintenance, 11/02/20 9:20:00 EDT, [facility], Partial fill upon patient request if the prescription is for a schedule II opioid drug., 164.4, cm, 09/19/20 12:24:0... Start Date: 11/02/20 Status: Ordered MiraLax oral powder for reconstitution = 17 Gm, By Mouth, Daily, dissolve in water before taking, # 255 Gm, 2 Refills, Maintenance, 02/23/22 9:51:00 EST, REC Powder, [facility]/pharmacy #[id number], Partial fill upon patient request if the [...] Refills, Maintenance, 02/11/20 11:34:00 EST, Tablet, [id number], Partial fill upon patient request if the [...] Refills, Maintenance, 02/23/22 9:50:00 EST, Tablet, [id number], Partial fill upon patient... Start Date: 02/23/22 [...] Team Personnel Name: Megan Recio MD Position: S Resident Member Role: PCP Address: Address: [address] [place] [address]- Care Team Related Persons Name: ELA WARE Address: home [address] [place] [address] Name: LIANA WARE Address: [address] Address: home [address] [place] [address] [place] Name: LUBA VACA Address: home [address] [place] [address]
--- OUTSIDE RECORDS SUMMARY | 2023-08-30 10:05 | XMS_ITS | Continuity of Care Document ---
Author Organization [facility] Address [address] [place] [address]- Care Team Providers Care Blackjack Dealer Name Role Phone Megan Recio MD Primary Care Physician Encounter [facility] Date(s): 12/06/22 - 01/05/[address] [address]- Allergies, Adverse Reactions, Alerts No Known Allergies [...] 09/24/20 8:57:00 EDT, Route to Pharmacy Electronically, [facility]/pharmacy #, Partial fill upon patient request if the prescription is... Start Date: 09/24/20 Status: Ordered copper intrauterine device See Instructions, Bring to office for insertion., # 1 each, 0 Refills, Maintenance, 11/02/20 9:20:00 EDT, [facility], Partial fill upon patient request if the prescription is for a schedule II opioid drug., 164.4, cm, 09/19/20 12:24:0... Start Date: 11/02/20 Status: Ordered MiraLax oral powder for reconstitution = 17 Gm, By Mouth, Daily, dissolve in water before taking, # 255 Gm, 2 Refills, Maintenance, 02/23/22 9:51:00 EST, REC Powder, [facility]/pharmacy #[id number], Partial fill upon patient request if the [...] Refills, Maintenance, 02/11/20 11:34:00 EST, Tablet, [id number], Partial fill upon patient request if the [...] S Resident Member Role: PCP Address: Address: [address] [place] [address]- Care Team Related Persons Name: ELA WARE Address: home [address] [place] [address] Name: LIANA WARE Address: [address] Address: home [address] [place] [address] [place] Name: LUBA VACA Address: home [address] [place] [address]
--- NOTE | 2023-08-30 10:22 | ED_ITS ---
HPI - Ear Problem General Chief complaint: Ear Problems Stated complaint: Trouble hearing R ear Time Seen by Provider: 08/30/23 10:22 Source: patient, RN notes reviewed and old records reviewed Mode of arrival: ambulatory Limitations: no limitations History of Present Illness ED Provider: LAUREN BOWEN PA-C HPI Narrative: 22 [place] old female with no significant pmhx presents to the ED today for evaluation of right ear pain x2 days. Reports associated decreased hearing within the ear x1 week. Reports history of similar in the past which improved with ear drops. Denies known sick contacts. Denies drainage from the ear, fever/chills, jaw pain, ear swelling, neck pain. Denies FB. no hx of diabetes. Related Data Previous Rx's ?Medication ?Instructions ?Recorded acetaminophen 500 mg tablet 1,000 mg (2 x 500 mg) PO QID PRN 01/12/20 (Tylenol Extra Strength) pain #10 tabs cephalexin 500 mg capsule (Keflex) 500 mg PO Q6H 10 days #40 caps 01/12/20 doxycycline monohydrate 100 mg 100 mg PO BID 10 days #20 caps 01/12/20 capsule naproxen 500 mg tablet 500 mg PO BID PRN pain 10 days #20 06/30/21 tabs [id number]-[id number] 3.3 4 drp otic (ear) right TID 10 days 06/30/21 mg-3 mg-10 mg-0.5 mg/mL ear #100 mL drops,susp (Cortisporin-TC) Magic Mouthwash 5 ml PO TID #240 mL 10/10/22 Diphen/Lido/Antacid 1:1:1 240 mL suspension amoxicillin 875 mg-potassium 1 tab PO BID 10 days #20 tabs 10/10/22 clavulanate 125 mg tablet prednisone 20 mg tablet 40 mg (2 x 20 mg) PO DAILY 5 days 10/10/22 #10 tabs ciprofloxacin 0.3 %-dexamethasone 4 drp otic (ear) right BID 7 days 08/30/23 0.1 % ear drops,suspension #7.5 mL (Ciprodex) Allergies Allergy/AdvReac Type Severity Reaction Status Date / Time No Known Allergies Allergy Verified 08/30/23 09:56 [No Known Allergies*] Review of Systems Review of Systems: Constitutional: No fever, chills, fatigue, night sweats, weight changes ENT/Mouth: No hearing loss, nasal congestion, sinus pain, rhinorrhea, sore th roat, +right ear pain Eyes: No eye pain, swelling, redness, vision changes, discharge Cardio: No chest pain, palpitations, CLINE, orthopnea, peripheral edema Pulm: No SOB, cough, sputum, wheezing, dyspnea, hemoptysis GI: No nausea, vomiting, hematemesis, abdominal pain, diarrhea, constipation, hematochezia, melena : No irregular bleeding, dysuria, frequency, urgency, hesitancy, hematuria, flank pain, urinary flow changes, urinary incontinence or retention MSK: No back pain, neck pain, joint pain, myalgias Skin: No lesions, rashes Neuro: No weakness, numbness, paresthesias, LOC, dizziness, headache Psych: No anxiety/panic, depression, SI/HI, AH/VH All other systems reviewed and are negative. [facility] Past Medical History Attestation statement: The following information was validated with the patient. Source: old records reviewed and nursing notes reviewed Medical History No known health problems Social History Social History Alcohol intake: never Advance Directives: No Advance Directives Information Provided: No Physical Exam Vital Signs: Vital Signs: Last Vital Signs Temp 97.5 F 08/30/23 09:54 Pulse 88 08/30/23 09:54 Resp 16 08/30/23 09:54 BP 130/88 08/30/23 09:54 Pulse Ox 100 08/30/23 09:54 O2 Del Method Room Air 08/30/23 09:54 BMI result Body Mass Index 32.6 vital signs stable, afebrile Const: General: cooperative, healthy appearing, comfortable and no acute distr ess Orientation/consciousness: patient oriented x3 Limitations: no limitations HEENT: Other: + No pain on manipulation of left pinna or tragus. No mastoid tenderness. Left EAC without erythema, edema or discharge. TM intact without erythema, effusion, or bulging. + pain on manipulation of right pinna. N o mastoid tenderness. Right EAC erythematous and edematous without discharge. TM intact without erythema, effusion, or bulging. Head: Yes normal to inspection, Yes No palpable skull fracture present, Yes normocephalic and Yes atraumatic Ears: hearing grossly normal bilaterally Face and sinus: Yes normal facial exam and Yes sinuses nontender Eyes: General: appearance normal, both eyes and all related structures Pupils: Equal, round and reactive pupils present Neck: Neck: Yes normal visual inspection and Yes no lymphadenopathy Resp: Effort & Inspection: normal respiratory effort and able to speak in complete sentences Auscultation: clear to auscultation bilaterally Cardio: Rate: regular rate Rhythm: regular rhythm Skin: General skin exam: no rashes or lesions noted Neuro: General: patient oriented x3 and gait normal Cranial nerves: Yes Equal, round and reactive pupils present Course Course Course Narrative: 1031-- Physical exam is consistent with otitis externa of the right ear. I did discuss this with patient. she was given a dose of toradol in ED for pain control. ciprodex sent to pharmacy for treatment. Advised to take tylenol/ motr in at home for pain/ discomfort. Patient has remained stable throughout ED visit today. Discussed worrisome signs and symptoms and when to return to the ED. All questions answered at this time. Patient is agreeable with disposition and stable for discharge. Medical Decision Making Medical Decision Making MDM Narrative: 22 [place] old female with no significant pmhx presents to the ED today for evaluation of right ear pain x2 days. vital signs stable, afebrile. she is nontoxic appearing and in NAD. on exam, pain on manipulation of right pinna. No mastoid tenderness. No protrusion of the auricle. Right EAC erythematous and edematous without discharge. TM intact without erythema, effusion, or bulging. no rashes. EOMs intact w/o pain. skin w/d/i. Differential diagnosis includes otitis media, otitis externa. Unlikely mastoiditis, malignant otitis externa, preseptal or orbital cellulitis. Plan for pain control and disposition. Differential Diagnosis Differential Diagnoses: The differential diagnosis associated with the presenta tion includes as above. Admission/Observation Not indicated External Record Review External record reviewed: Inpatient record Tests considered The following testing was considered but not selected: I considered obtaining imaging however no suspicion for deep tissue infection, not warranted at this time Prescription Management I considered prescription management with: Antibiotic (Ciprodex) Social Determinants Patient?s care significantly limited by Social Determinants of Health including: Other Social Determinant of Health Critical Care Time Critical Care Time Critical Care Time: No Discharge Plan Discharge Clinical Impression: External otitis of right ear Patient Disposition: Home, Self-Care Instructions: Otitis Externa (ED) Additional Instructions: You were evaluated in the ED today for right ear pain. You have an outer ear infection turned otitis externa. Treatment for this is with antibiotic ear drops. Ciprodex is a combination antibiotic/steroid ear drop to treat this. Has been sent to your pharmacy. Do not stop administering this early or skip any doses as this may cause infection to persist or worsen. Please alternate Tylenol and ibuprofen at home for pain/discomfort. Follow-up with your primary care provider. Return with new or worsening symptoms. In the case of an emergency call 911. Prescriptions: New ciprofloxacin-dexamethasone [Ciprodex] 0.3-0.1 % drops,suspension 4 drp otic (ear) right BID 7 Days Qty: 7.5 0RF No Action doxycycline monohydrate 100 mg capsule 100 mg PO BID 10 Days Qty: 20 0RF cephalexin [Keflex] 500 mg capsule 500 mg PO Q6H 10 Days Qty: 40 0RF acetaminophen [Tylenol Extra Strength] 500 mg tablet 1,000 mg PO QID PRN (Reason: pain) Qty: 10 0RF Cortisporin-TC 3.3-3-10-0.5 mg/mL drops,suspension 4 drp otic (ear) right TID 10 Days Qty: 100 0RF naproxen 500 mg tablet 500 mg PO BID PRN (Reason: pain) 10 Days Qty: 20 0RF prednisone 20 mg tablet 40 mg PO DAILY 5 Days Qty: 10 0RF amoxicillin-pot clavulanate 875-125 mg tablet 1 tab PO BID 10 Days Qty: 20 0RF Magic Mouthwash Diphen/Lido/Antacid 1:1:1 240 mL suspension 5 ml PO TID Qty: 240 0RF Rx Instructions: Lidocaine Viscous 2 % 80mL; diphenhydramine 12.5 mg/5 mL 80mL; aluminum-mag hydrox-simeth [id number]/5mL 80mL Swish and spit, do not swallow Print Language: Scottish
[2023-08-30] MEDS: Ketorolac Tromethamine 30 MG/ML VIAL IM (10:47)
[2023-08-30 10:53] VITALS: BP 130/84; PULSE 88; RESP 18; TEMP 36.8; O2SAT 98
== END 2023-08-30 10:55 | disposition home or self-care (01) ==
PROVIDERS: Emergency Provider Emergency Medicine Emergency Medical Services
DX: H60.91 Unspecified otitis externa, right ear (principal); H92.01 Otalgia, right ear
CPT/HCPCS: 96372; 99283; 99284; J1885

== ENCOUNTER 2023-09-02 23:15 | Emergency (ER) | payer OTHER, SELFPAY ==
[2023-09-02 23:17] VITALS: BP 124/80; PULSE 94; RESP 17; TEMP 36.6; O2SAT 100; BMI 30.5
--- NOTE | 2023-09-03 01:41 | ED.EAR ---
HPI - Ear Problem General Chief complaint: Ear Problems Stated complaint: ear pain Time Seen by Provider: 09/03/23 01:07 Source: patient, RN notes reviewed and old records reviewed Mode of arrival: ambulatory Limitations: no limitations History of Present Illness ED Provider: Srinivas PALACIO Narrative: 22-year-old female presents for evaluation of right ear pain. She was diagnosed with acute otitis externa On 08/30/2023 She was prescribed ciprofloxacin with hydrocortisone. She reports that she has been taking it as prescribed. She states ?when I put the medicine in itches sits on the edge of the ear and does not go in. ? She denies any fevers or chills. She states her pain is now radiating to her jaw She reports chills but no fevers Related Data Previous Rx's ?Medication ?Instructions ?Recorded acetaminophen 500 mg tablet 1,000 mg (2 x 500 mg) PO QID PRN 01/12/20 (Tylenol Extra Strength) pain #10 tabs cephalexin 500 mg capsule (Keflex) 500 mg PO Q6H 10 days #40 caps 01/12/20 doxycycline monohydrate 100 mg 100 mg PO BID 10 days #20 caps 01/12/20 capsule naproxen 500 mg tablet 500 mg PO BID PRN pain 10 days #20 06/30/21 tabs [id number]-thonzonm 3.3 4 drp otic (ear) right TID 10 days 06/30/21 mg-3 mg-10 mg-0.5 mg/mL ear #100 mL drops,susp (Cortisporin-TC) Magic Mouthwash 5 ml PO TID #240 mL 10/10/22 Diphen/Lido/Antacid 1:1:1 240 mL suspension amoxicillin 875 mg-potassium 1 tab PO BID 10 days #20 tabs 10/10/22 clavulanate 125 mg tablet prednisone 20 mg tablet 40 mg (2 x 20 mg) PO DAILY 5 days 10/10/22 #10 tabs ciprofloxacin 0.3 %-dexamethasone 4 drp otic (ear) right BID 7 days 08/30/23 0.1 % ear drops,suspension #7.5 mL (Ciprodex) ciprofloxacin 0.2 %-hydrocortisone 3 drp otic (ears) BID 7 days #10 mL 08/31/23 1 % ear drops,suspension (Cipro HC) amoxicillin 875 mg-potassium 1 tab PO Q12H #14 tabs 09/03/23 clavulanate 125 mg tablet tramadol 50 mg tablet 50 mg PO Q6H PRN pain #12 tabs 09/03/23 Allergies Allergy/AdvReac Type Severity Reaction Status Date / Time No Known Allergies Allergy Verified 09/02/23 23:18 [No Known Allergies*] Review of Systems Constitutional: Constitutional: Denies body ache(s), Reports chills, Denies fever(s) and Reports headache(s) ENT: Reports ear discharge, Reports otalgia and Reports headache(s) Cardiovascular: Cardiovascular: Denies chest pain and Denies dyspnea Respiratory: Respiratory: Denies dyspnea Musculoskeletal: Musculoskeletal: Denies back pain Integumentary/Breasts: Skin/Breast: Denies rash Neurologic: Reports headache(s) [facility] Past Medical History Medical History No known health problems Social History Social History Alcohol intake: never Smoked in Last 30 Days: No Advance Directives: No Advance Directives Information Provided: No Do you have a plan to hurt others: No Plan Physical Exam Vital Signs: Vital Signs: Last Vital Signs Temp 98.3 F 09/03/23 01:54 Pulse 84 09/03/23 01:54 Resp 18 09/03/23 01:54 BP 118/73 09/03/23 01:54 Pulse Ox 100 09/03/23 01:54 O2 Del Method Room Air 09/03/23 01:54 BMI result Body Mass Index 30.5 Const: General: healthy appearing, comfortable, no acute distress, alert and awake Nutritional Appearance: well nourished Orientation/consciousness: patient oriented x3 HEENT: Other: Patient has no mastoid tenderness, pre or postauricular edema. She does have tenderness with manipulation of the tragus and pinna on the right. There is significant otorrhea on the right with an edematous external ear canal. The view of the TM is obstructed Head: Yes normocephalic and Yes atraumatic Eyes: Eyelids: Yes eyelids normal Conjunctivae: conjunctivae normal Sclerae: sclerae normal Corneas: corneas normal Pupils: Equal, round and reactive pupils present EOM: EOMs intact bilaterally Neck: Neck: Yes full ROM Resp: Effort & Inspection: normal respiratory effort, able to speak in complete sentences and not labored Skin: General skin exam: elasticity normal Neuro: General: patient oriented x3 Cranial nerves: Yes Equal, round and reactive pupils present and Yes Bilaterally intact EOM present Cognition (Neuro): normal cognition Medical Decision Making Medical Decision Making MDM Narrative: Patient has obvious acute right otitis externa on exam. There is no evidence of acute mastoiditis. It is apparent that the patient is correct in that her antibiotics are not draining down into her external ear canal. I was able to place an ear wick into the right external ear canal with good administration of the ciprofloxacin drops. I did prescribe the patient oral Augmentin in case the wick is not helping. I also gave the patient ENT follow-up Differential Diagnosis Differential Diagnoses: The differential diagnosis associated with the presentation includes Otitis externa Otitis media Mastitis Cerumen impaction Discharge Plan Discharge Clinical Impression: Otitis externa Patient Disposition: Home, Self-Care Instructions: Otitis Externa (ED) Additional Instructions: Continue using the drops in your right ear as prescribed. A wick was placed in your ear that should help keep the canal open and help administer the antibiotics down in your ear canal I prescribed a course of amoxicillin that you may start in 2 days if your symptoms are not beginning to improve Follow-up with Dr. Cardoso, ear nose and throat if your symptoms are worsening You may use Motrin/Tylenol for pain. You may use tramadol for more severe breakthrough pain. This may make you sleepy, did not drink alcohol or drive after taking it Prescriptions: New amoxicillin-pot clavulanate 875-125 mg tablet 1 tab PO Q12H Qty: 14 0RF tramadol 50 mg tablet 50 mg PO Q6H PRN (Reason: pain) Qty: 12 0RF No Action doxycycline monohydrate 100 mg capsule 100 mg PO BID 10 Days Qty: 20 0RF cephalexin [Keflex] 500 mg capsule 500 mg PO Q6H 10 Days Qty: 40 0RF acetaminophen [Tylenol Extra Strength] 500 mg tablet 1,000 mg PO QID PRN (Reason: pain) Qty: 10 0RF Cortisporin-TC 3.3-3-10-0.5 mg/mL drops,suspension 4 drp otic (ear) right TID 10 Days Qty: 100 0RF naproxen 500 mg tablet 500 mg PO BID PRN (Reason: pain) 10 Days Qty: 20 0RF prednisone 20 mg tablet 40 mg PO DAILY 5 Days Qty: 10 0RF amoxicillin-pot clavulanate 875-125 mg tablet 1 tab PO BID 10 Days Qty: 20 0RF Magic Mouthwash Diphen/Lido/Antacid 1:1:1 240 mL suspension 5 ml PO TID Qty: 240 0RF Rx Instructions: Lidocaine Viscous 2 % 80mL; diphenhydramine 12.5 mg/5 mL 80mL; aluminum-mag hydrox-simeth [id number]/5mL 80mL Swish and spit, do not swallow ciprofloxacin-dexamethasone [Ciprodex] 0.3-0.1 % drops,suspension 4 drp otic (ear) right BID 7 Days Qty: 7.5 0RF Cipro HC 0.2-1 % drops,suspension 3 drp otic (ears) BID 7 Days Qty: 10 0RF Referrals: Bryan Mendez [Physician] - (Severe otitis externa) Interventions: ED Discharge Assessment Last Done: 09/03/23 01:54 Discharge Date/Time: 09/03/23 01:56 Print Language: [place]
[2023-09-03 01:54] VITALS: BP 118/73; PULSE 84; RESP 18; TEMP 36.8; O2SAT 100
== END 2023-09-03 01:56 | disposition home or self-care (01) ==
PROVIDERS: Emergency Provider Emergency Medicine
DX: H60.91 Unspecified otitis externa, right ear (principal); H92.01 Otalgia, right ear
CPT/HCPCS: 99283; 99284